=== PATIENT | female | born 1970 | race Caucasian/White ===

== ENCOUNTER → 2016-08-24 | Outpatient (CLI) | payer BC ==
[~2016-08-24] MED LIST: ACET-1256 PO; ALBU1AER9 INH; ALIGN PROBIOTIC PO; ALUM-30 PO; BECL1AER5 NAE; CALC500C50 PO; CHOL1CAP85 PO; DICY10CA12 PO; DIPH-437 PO; DIPH25TA24 PO; DSWCR TOP; FEXO1TAB46 PO; FLUO0.0566 TOP; FLUT0.0529 NAE; HYDR0.054 TOP; KETO0.0216 OPB; LEVA45AE INH; METH-446 PO; OLOP1DRO OPB; ONDA4TAB7 SL; PANT40TA PO; PROM25SU28 PR; PSEU30TA20 PO; PSEU30TA3 PO; PSEU60TA80 PO; RIZA10TA19 PO; SIME125C11 PO; SIME125T PO; TRAM-10 PO; TRMCR130WC TOP; [UNRECOGNIZED DRUG - CODE] PO; phenergan PO
== END | disposition home or self-care (01) ==
LOC: C.LAB1850 09:53
PROVIDERS: ATTEND Obstetrics & Gynecology
DX: N95.2 Postmenopausal atrophic vaginitis (principal)

== ENCOUNTER → 2016-12-24 | Outpatient (CLI) | payer BC ==
[~2016-12-24] MED LIST changes: -ALUM-30 PO; -BECL1AER5 NAE; -CHOL1CAP85 PO; -DIPH-437 PO; -DSWCR TOP; -FLUO0.0566 TOP; -HYDR0.054 TOP; -LEVA45AE INH; -OLOP1DRO OPB; -PANT40TA PO; -PSEU30TA3 PO; -SIME125T PO; -TRAM-10 PO; -TRMCR130WC TOP; -phenergan PO
== END | disposition home or self-care (01) ==
LOC: C.LABSPEC 17:33
PROVIDERS: ATTEND Nurse Practitioner Adult Health
DX: R10.2 Pelvic and perineal pain (principal); N39.3 Stress incontinence (female) (male)

== ENCOUNTER → 2017-02-04 | Outpatient (CLI) | payer BC ==
[2017-02-04 11:06] LABS: THYROID STIMULATING HORMONE 2.03 uIu/ml (0.300-4.500)
== END | disposition home or self-care (01) ==
LOC: C.LABBC 08:40
PROVIDERS: ATTEND Obstetrics & Gynecology
DX: E28.319 Asymptomatic premature menopause (principal)

== ENCOUNTER → 2017-02-05 | Outpatient (CLI) | payer BC ==
--- NOTE | 2017-02-05 14:32 | MAMMOGRAPHY REPORT ---
BILATERAL DIGITAL SCREENING MAMMOGRAM TOMOSYNTHESIS WITH CAD: 02/05/2017 CLINICAL HISTORY: Routine screening. Patient has no complaints. TECHNIQUE: Breast tomosynthesis in addition to standard 2D mammography was performed. Current study was also evaluated with a Computer Aided Detection (CAD) system. COMPARISON: Comparison is made to exams dated: 02/03/2016 mammogram, 02/01/2015 mammogram, 4 ultrasound, 01/29/2014 mammogram, 01/15/2013 ultrasound, and 01/15/2013 mammogram - [facility]. BREAST COMPOSITION: The tissue of both breasts is extremely dense, which lowers the sensitivity of m ammography. FINDINGS: The parenchymal pattern is similar to prior mammograms. No developing mass, architectural distortion or cluster of suspicious microcalcifications is seen in either breast. IMPRESSION: ACR BI-RADS CATEGORY 2: BENIGN There is no mammographic evidence of malignancy. A 1 year screening mammogram is recommended. The pa tient will receive written notification of the results. Approximately 10% of breast cancers are not detected with mammography. A negative mammographic report should not delay biopsy if a clinically suggestive mass is present. Lisa Nickerson M.D. ay/:02/05/2017 11:59:25 [employer] Work[employer] [place] Handle: Kylie Carter, [facility] letter sent: Normal 1/2 BI-RADS Code: ACR BI-RADS Category 2: Benign
== END | disposition home or self-care (01) ==
LOC: C.MAMM 10:47
PROVIDERS: ATTEND Obstetrics & Gynecology
DX: Z12.31 Encounter for screening mammogram for malignant neoplasm of breast (principal)

== ENCOUNTER → 2017-03-06 | Outpatient (CLI) | payer BC ==
[~2017-03-06] MED LIST changes: -ALBU1AER9 INH; -ALIGN PROBIOTIC PO; +ALUM-30 PO; +BECL1AER5 NAE; +CHOL1CAP85 PO; +DIPH-437 PO; -DIPH25TA24 PO; +DSWCR TOP; +FLUO0.0566 TOP; -FLUT0.0529 NAE; +HYDR0.054 TOP; -KETO0.0216 OPB; +LEVA45AE INH; +OLOP1DRO OPB; -ONDA4TAB7 SL; +PANT40TA PO; -PSEU30TA20 PO; +PSEU30TA3 PO; -SIME125C11 PO; +SIME125T PO; +TRAM-10 PO; +TRMCR130WC TOP; -[UNRECOGNIZED DRUG - CODE] PO; +phenergan PO
[2017-03-06 12:31] LABS: THYROID STIMULATING HORMONE 1.79 uIu/ml (0.300-4.500)
== END | disposition home or self-care (01) ==
LOC: C.LAB 09:49
PROVIDERS: ATTEND Obstetrics & Gynecology
DX: R53.83 Other fatigue (principal)

== ENCOUNTER 2017-04-23 20:35 | Emergency (ER) | payer BC ==
[~2017-04-23] VITALS: Ht 165.1 cm; Wt 67.9 kg
[2017-04-23 20:48] VITALS: TEMP 36.8; Ht 165.1 cm; Wt 67.9 kg
[2017-04-23] MEDS ORDERED: ALBUTEROL 0.083% NEBU SOLN 3 ML VIAL INH STA (21:24)
[2017-04-23 21:55] LABS: BASO % 0.2 %; BASO ABS # 0.01 K/uL (0-0.2); EOS % 0.3 %; EOS ABS # 0.02 K/uL (0-0.5); HEMATOCRIT 40.4 % (37-47); HEMOGLOBIN 13.8 g/dL (12.0-16.0); IG# 0.01 K/uL (0.00-0.02); LYMPH % 11.8 %; LYMPH ABS # 0.73 K/uL (1.2-3.4); MEAN CELL VOLUME 92.4 fL (80-100); MEAN CORPUSCULAR HEMOGLOBIN 31.6 pg (25-34); MEAN CORPUSCULAR HGB CONC 34.2 g/dl (32-36); MEAN PLATELET VOLUME 11.1 fL (7.4-10.4); MONO % 3.2 %; NEUT % 84.3 %; NEUT ABS # 5.23 K/uL (1.4-6.5); PLATELET COUNT 276 K/uL (130-400); RED CELL DISTRIBUTION WIDTH CV 12.5 % (11.5-14.5); RED CELL DISTRIBUTION WIDTH SD 42.4 fL (36.4-46.3)
--- NOTE | 2017-04-23 22:06 | DIAGNOSTIC IMAGING REPORT ---
CHEST ONE VIEW PORTABLE HISTORY: 46 years-old Female Chest Pain acute atypical chest pain COMPARISON: Acute abdominal series radiographs 05/12/2014 TECHNIQUE: Portable AP view of the chest FINDINGS: Cardiomediastinal and hilar silhouettes are within normal limits. No pneumothorax, pleural effusion, focal airspace consolidation or overt pulmonary edema. Bones of the chest appear grossly intact. IMPRESSION: No acute process. The above report was generated using voice recognition software. It may contain grammatical, syntax or spelling errors. Electronically signed by: Camilo Carreon M.D. 04/23/2017 10:04 PM Dictated Date/Time: 04/23/2017 10:04 PM
[2017-04-23 22:16] LABS: BLOOD UREA NITROGEN 14 mg/dl (7-18); CALCIUM 9.1 mg/dl (8.5-10.1); CARBON DIOXIDE 26 mmol/L (21-32); CREATININE 1.42 mg/dl (0.60-1.20); GLUCOSE 162 mg/dl (70-99); POTASSIUM 3.8 mmol/L (3.5-5.1); SODIUM 140 mmol/L (136-145)
[2017-04-23 22:48] LABS: INFLUENZA B ANTIGEN Neg for Influ B (NEG)
[2017-04-24] MEDS ORDERED: ALBUT/IPRATROP 3MG/0.5MG NEB 3 ML VIAL INH STA (00:18)
[2017-04-24] MEDS ORDERED: PRED50TA PO (00:19)
[2017-04-24 00:43] VITALS: BP 136/94; PULSE 85; O2SAT 98
--- NOTE | 2017-04-24 01:06 | EMERGENCY ROOM VISIT NOTE ---
History Report prepared by Selinaibvicky: Carmine Williamson Under the Supervision of: Dr. Jakob Davalos D.O. First contact with patient: 21:00 Chief Complaint: FLU LIKE SX Stated Complaint: PROBABLY FLU 2 WEEKS AGO, CONGESTIONS, SINUS,LUNGS History of Present Illness The patient is a 46 year old female who presents to the Emergency Room with complaints of persistent generalized illness beginning four days ago. Her symptoms include subjective fevers, sinus congestion, runny nose, cough, chest "tightness", and shortness of breath. Her cough produces a yellow sputum. The patient has a history of asthma and states that her chest tightness feels like her asthma. She notes that she had a sinus surgery recently and had a mucocele removed at this time. She denies any ear pain. The patient has taken Sudafed, Prednisone, and Tylenol for her symptoms. Prednisone has improved her symptoms. Patient denies diabetes, hypertension, hyperlipidemia, CAD, history of sudden at a young age, and smoking. Source of History: patient Onset: Four days ago Position: other (generalized) Quality: other (illness) Timing: other (persistent) Modifying Factors (Relieving): other (Prednisone) Associated Symptoms: + fevers (subjective), + cough (productive), + chest pain ("tightness"), + SOB Note: Positive: sinus congestion, runny nose. Negative: ear pain. Review of Systems See HPI for pertinent positives & negatives. A total of 10 systems reviewed and were otherwise negative. Past Medical & Surgical Medical Problems: (1) Patel's esophagus (2) Borderline high cholesterol (3) Endometriosis (4) GERD (gastroesophageal reflux disease) (5) Hiatal hernia (6) HTN (hypertension) (7) Kidney stone (8) Menorrhagia (9) Tachycardia (10) Upper GI bleed Family History No pertinent family history stated. Social History Smoking Status: Never Smoker Marital Status: Housing Status: lives with family Occupation Status: other Current/Historical Medications Scheduled Acetaminophen (Tylenol), 500 MG PO BID Beclomethasone Dipropionate (N (Qnasl), 2 SPRY OPAL DAILY Cholecalciferol (Vitamin D3), 1 CAP PO QAM Diphenhydramine-Acetaminophen (Tylenol Pm), 1 TAB PO HS Fexofenadine Hcl (Spohia), 180 MG PO QAM Methocarbamol (Robaxin), 750 MG PO BID Olopatadine HCl (Pazeo), 1 DROP OPB DAILY Pantoprazole (Protonix), 40 MG PO QAM Prednisone (Prednisone), 50 MG PO DAILY Pseudoephedrine-Guaifenesin (Mucinex D), 600 MG PO BID Scheduled PRN Alum & Mag Hydrox-Simethicone (Mylanta), 1 DOSE PO DAILY PRN for prn Calcium Carbonate (Antacid) (Tums), 750 MG PO Q4 PRN for Indigestion Desonide 0.05% (Desowen 0.05%), 1 APPLN TOP BID PRN for prn Dicyclomine Hcl (Dicyclomine Hcl), 10 MG PO QID PRN for ABDOMINAL CRAMPING Fluocinonide (Fluocinonide), 1 APPLN TOP DAILY PRN for prn Hydrocortisone Valerate (Westcort 0.2% Cream), 1 DOSE TOP DAILY PRN for prn Levalbuterol Tartrate (Levalbuterol Tartrate Hfa), 1 PUFF INH Q6H PRN for Shortness of Breath Promethazine Hcl (Phenergan Suppository), 25 MG HI Q6H PRN for Nausea Pseudoephedrine Hcl (Sudafed Nasal Decongestan), 1 TAB PO DAILY PRN for prn Rizatriptan Benzoate (Maxalt-Executive Director), 10 MG PO DIRECTED PRN for Migraine Simethicone (Bicarsim Forte), 1 TAB PO DAILY PRN for prn Tramadol (Ultram), 50 MG PO Q4H PRN for Pain Triamcinolone Acet (Aristocort 0.1%), 1 DOSE TOP DAILY PRN for prn [phenergan], 1 TSP PO Q4H PRN for nausea Allergies Coded Allergies: Cefuroxime (Verified Allergy, Severe, HIVES/SOB, 02/14/17) Doxycycline (Verified Allergy, Severe, RASH/SEVERE DIARRHEA, 02/14/17) Erythromycin (Verified Allergy, Severe, HIVES/SOB, 02/14/17) Gatifloxacin (Verified Allergy, Severe, HIVES/SOB, 02/14/17) Levofloxacin (Verified Allergy, Severe, HIVES/SOB/HALLUCINATIONS, 02/14/17 ) Moxifloxacin (Verified Allergy, Severe, HIVES/SOB, 02/14/17) Penicillins (Verified Allergy, Severe, HIVES AND SOB, 02/14/17) Sulfa Drugs (Verified Allergy, Severe, HIVES/SOB, 02/14/17) Sulfamethoxazole w/Trimethoprim (Verified Allergy, Severe, HIVES/SOB, ) Adhesives (Verified Allergy, Mild, bandaids - rash, itchy, 02/14/17) Silver Nitrate (Verified Allergy, Mild, rash and itchy, 02/14/17) Clindamycin (Verified Adverse Reaction, Unknown, SEVERE DIARRHEA/ ABDOMINAL CRAMPING ? airway restriction, 02/14/17) patient states she had flagyl and clindamycin in combination for a previous surery and had reaction of not being able to breathe and had to have epinephrine. she had taken flagyl for another surgery and did fine. so not sure if clindamycin or some other medication with surgery gave her this reaction. Dr Bustos has spoken with patient and she is willing to take the clindamycin. but very nervous about it. Physical Exam Vital Signs Date Time Temp Pulse Resp B/P (MAP) Pulse Ox O2 Delivery O2 Flow Rate FiO2 04/24/17 00:43 85 18 136/94 98 04/23/17 22:40 79 20 143/86 100 Room Air 04/23/17 20:48 36.8 105 20 187/95 100 Room Air Physical Exam GENERAL: Sitting up in bed, alert, well appearing, well nourished, no distress, non-toxic. Dry, non-productive cough noted. EYE EXAM: normal conjunctiva. OROPHARYNX: no exudate, no erythema, lips, buccal mucosa, and tongue normal and mucous membranes are moist NECK: supple, no nuchal rigidity, no adenopathy, non-tender LUNGS: Clear to auscultation. Normal chest wall mechanics HEART: no murmurs, S1 normal and S2 normal CHEST: faint anterior reproducible chest wall pain. ABDOMEN: abdomen soft, non-tender, normo-active bowel sounds, no masses, no rebound or guarding. BACK: Back is symmetrical on inspection and there is no deformity, no midline tenderness, no CVA tenderness. SKIN: no rashes and no bruising UPPER EXTREMITIES: upper extremities are grossly normal. LOWER EXTREMITIES: Calves equal bilaterally. NEURO EXAM: Normal sensorium, cranial nerves II-XII grossly intact, normal speech, no gross weakness of arms, no gross weakness of legs. Medical Decision & Procedures ER Provider Diagnostic Interpretation: Radiology results as stated below per my review and the radiologist's interpretation: CHEST ONE VIEW PORTABLE FINDINGS: Cardiomediastinal and hilar silhouettes are within normal limits. No pneumothorax, pleural effusion, focal airspace consolidation or overt pulmonary edema. Bones of the chest appear grossly intact. IMPRESSION: No acute process. The above report was generated using voice recognition software. It may contain grammatical, syntax or spelling errors. Electronically signed by: Camilo Carreon M.D. 04/23/2017 10:04 PM Laboratory Results 04/23/17 21:38 Red Blood Count 4.37, Mean Corpuscular Volume 92.4, Mean Corpuscular Hemoglobin 31.6, Mean Corpuscular Hemoglobin Concent 34.2, Mean Platelet Volume 11.1, Neutrophils (%) (Auto) 84.3, Lymphocytes (%) (Auto) 11.8, Monocytes (%) (Auto) 3.2, Eosinophils (%) (Auto) 0.3, Basophils (%) (Auto) 0.2, Neutrophils # (Auto) 5.23, Lymphocytes # (Auto) 0.73, Monocytes # (Auto) 0.20, Eosinophils # (Auto) 0.02, Basophils # (Auto) 0.01 04/23/17 21:38 Test 04/23/17 21:38 04/23/17 22:00 04/23/17 23:40 White Blood Count 6.20 K/uL (4.8-10.8) Red Blood Count 4.37 M/uL (4.2-5.4) Hemoglobin 13.8 g/dL (12.0-16.0) Hematocrit 40.4 % (37-47) Mean Corpuscular Volume 92.4 fL (80-100) Mean Corpuscular Hemoglobin 31.6 pg (25-34) Mean Corpuscular Hemoglobin Concent 34.2 g/dl (32-36) Platelet Count 276 K/uL (130-400) Mean Platelet Volume 11.1 fL (7.4-10.4) Neutrophils (%) (Auto) 84.3 % Lymphocytes (%) (Auto) 11.8 % Monocytes (%) (Auto) 3.2 % Eosinophils (%) (Auto) 0.3 % Basophils (%) (Auto) 0.2 % Neutrophils # (Auto) 5.23 K/uL (1.4-6.5) Lymphocytes # (Auto) 0.73 K/uL (1.2-3.4) Monocytes # (Auto) 0.20 K/uL (0.11-0.59) Eosinophils # (Auto) 0.02 K/uL (0-0.5) Basophils # (Auto) 0.01 K/uL (0-0.2) RDW Standard Deviation 42.4 fL (36.4-46.3) RDW Coefficient of Variation 12.5 % (11.5-14.5) Immature Granulocyte % (Auto) 0.2 % Immature Granulocyte # (Auto) 0.01 K/uL (0.00-0.02) D-Dimer 340 ug/L FEU (0-500) Anion Gap 8.0 mmol/L (3-11) Est Creatinine Clear Calc Drug Dose 45.5 ml/min Estimated GFR () 51.9 Estimated GFR (Non- 44.8 BUN/Creatinine Ratio 9.5 (10-20) Calcium Level 9.1 mg/dl (8.5-10.1) Influenza Type A Antigen Neg for Influ A (NEG) Influenza Type B Antigen Neg for Influ B (NEG) Troponin I < 0.015 ng/ml (0-0.045) Laboratory results per my review. Medications Administered Medications (Trade) Dose Ordered Sig/Herbie Route Start Time Stop Time Status Last Admin Dose Admin Albuterol Sulfate (Ventolin 0.083% 2.5MG/3ML Neb) 2.5 mg NOW STAT INH 04/23/17 21:24 04/23/17 21:25 DC 04/23/17 22:11 2.5 MG ECG Indication: chest pain Rate (beats per minute): 81 Rhythm: sinus rhythm Findings: no ectopy, other (Normal axis. ) ED Course ED COURSE: Vital signs were reviewed and showed tachycardia and hypertension. The patients medical record was reviewed The above diagnostic studies were performed and reviewed. ED treatments and interventions as stated above. 2116: The patient was evaluated in room C5. A complete history and physical examination was performed. 2123: Ordered Ventolin 0.083% 2.5 mg/3 mL Neb 2.5 mg INH. 2333: i updated the patient on her test results. 0015: Upon reevaluation, the patient is resting comfortably. I discussed my findings with the patient and she understands and agrees with the treatment plan. Based on the patients age, coexisting illnesses, exam and lab findings the decision to treat as an outpatient was made. The patient remained stable while under my care. The patient appeared well at the time of discharge. Medical Decision Differential diagnosis: Etiologies such as viral syndrome, otitis, pharyngitis, pneumonia, influenza, meningitis, urinary tract infection, sepsis, bacteremia, as well as others were entertained. Patient is a 46-year-old female who presents to ER with upper respiratory congestion, cough, runny nose and a sore throat. She's been coughing up yellow sputum. She also admits to some shortness of breath and chest tightness associated with symptoms. Does feel like her asthma. No fevers. She was given neb treatment with improvement of her tightness of breathing. CBC all BMP was unremarkable. Troponins were negative 2. EKG unremarkable. Chest x- ray without infiltrate. D-dimer was negative. Patient was given a pressure. Her steroids and treated for asthma/upper respiratory infection which I favor is likely viral. I did not give her antibiotics at this time. Discussed with Pt concerning signs and symptoms to watch out for. Pt was instructed to follow up with their PCP and discussed with the patient their option to return to the ED at anytime for persistent or worsening symptoms. The appropriate anticipatory guidance and out-patient management, including indications for return to the emergency department, were explained at length to the patient and understood. Medication Reconcilliation Current Medication List: was personally reviewed by me Blood Pressure Screening Patient's blood pressure: Elevated blood pressure Blood pressure disposition: Referred to PCP Impression Primary Impression: Viral URI Scribe Attestation The scribe's documentation has been prepared under my direction and personally reviewed by me in its entirety. I confirm that the note above accurately reflects all work, treatment, procedures, and medical decision making performed by me. Departure Information Dispostion Home / Self-Care Prescriptions Prednisone (PREDNISONE) 50 Mg Tab 50 MG PO DAILY for 3 Days, #3 TAB Prov: Jakob Davalos, 04/24/17 Referrals Yohan Ferris MD (PCP) Forms HOME CARE DOCUMENTATION FORM, IMPORTANT VISIT INFORMATION Patient Instructions ED URI Viral, My [facility] Additional Instructions Please follow up with your primary care doctor with in the next 24 hours. Any worsening of your symptoms, please return to the ED immediately. This includes any fevers greater than 100.4, worsening pain, chest pain, shortness breath, persistent nausea, vomiting, unable to eat or drink, or any other concerning signs or symptoms from your standpoint. Please take steroids as prescribed.
== END 2017-04-24 00:36 | disposition home or self-care (01) ==
LOC: C.EDB 20:36 → C.EDC 04-24 00:36
DX: J06.9 Acute upper respiratory infection, unspecified (principal); J45.909 Unspecified asthma, uncomplicated; K22.70 Barrett's esophagus without dysplasia; N80.9 Endometriosis, unspecified; K21.9 Gastro-esophageal reflux disease without esophagitis; K44.9 Diaphragmatic hernia without obstruction or gangrene; I10 Essential (primary) hypertension

== ENCOUNTER 2020-02-10 15:37 | Inpatient (IN) ==
--- NOTE | 2020-02-10 16:13 | XRay Report ---
KUB HISTORY: Generalized abdominal pain. COMPARISON: Chest and abdominal series 05/12/2014. FINDINGS: No dilated loops of bowel to suggest an obstruction. There is residual contrast within the colon. A few scattered colonic diverticula. No renal calculi. No ureteral calculi. No pneumoperitone um or pneumatosis. IMPRESSION: Residual oral contrast within the colon. Otherwise, unremarkable KUB. ACT 112: Negative or not required by law. Electronically signed by: Davey Butler M.D. 02/10/2020 4:11 PM
[2020-02-10 16:58] LABS: Basophils # (auto) 0.03 K/uL (0-0.2); Basophils % (auto) 0.5 %; Eosinophils % (auto) 1.6 %; Hematocrit (blood only) 43.5 % (37-47); Hemoglobin 14.5 g/dL (12.0-16.0); Lymphocytes # (auto) 1.34 K/uL (1.2-3.4); Lymphocytes % (auto) 21.6 %; Mean Corpuscular Hemoglobin 30.7 pg (25-34); Mean Corpuscular Hgb Conc 33.3 g/dL (32-36); Mean Platelet Volume 11.1 fL (7.4-10.4); Monocytes # (auto) 0.59 K/uL (0.11-0.59); Monocytes % (auto) 9.5 %; Neutrophils # (auto) 4.14 K/uL (1.4-6.5); Neutrophils % (auto) 66.8 %; Platelet Count 290 K/uL (130-400); RDW Coefficient of Variation 12.6 % (11.5-14.5); RDW Standard Deviation 42.6 fL (36.4-46.3); Red Blood Count 4.73 M/uL (4.2-5.4)
[2020-02-10] MEDS: SODIUM CHLORIDE 0.9% 1000ML 1,000 ML IV SCH (17:06)
[2020-02-10 17:22] LABS: Albumin Level 4.2 gm/dl (3.4-5.0); BUN Creatinine Ratio 7.7 (10-20); Calcium 9.4 mg/dl (8.5-10.1); Creatinine Clr Calc Pharmacy 63.9 ml/min; Est GFR (African American) 79.6; Est GFR (Non-African American) 68.7; Magnesium 2.3 mg/dl (1.8-2.4); Potassium 4.1 mmol/L (3.5-5.1)
[2020-02-10 17:23] LABS: Albumin Globulin Ratio 1.1 (0.9-2); Bilirubin,Total 0.6 mg/dl (0.2-1); Globulin 3.9 gm/dl (2.5-4.0); Total Protein 8.1 gm/dl (6.4-8.2)
--- NOTE | 2020-02-10 17:42 | History & Physical Report ---
Date of Service February 10, 2020 Assessment & Plan (1) Acute diverticulitis: This is a 49-year-old female who has significant past medical history of HTN, history of Patel's esophagus, GERD, IBS, chronic constipation, rectal prolapse, unspecified bleeding disorder, history of multiple drug allergies including anaphylaxis x2 who presents to ED from PCP secondary to acute diverticulitis unable to take any oral antibiotics due to allergies. Admit to med/surg Discussed with pharmacy regarding pt multiple drug allergies Start 1g IV Azactam and 500mg IV Flagyl q8h pre treat with APAP/Benadryl Clear liquid diet IVF 80cc/hr consult gen surg (2) Multiple drug allergies: (3) Hx of anaphylaxis: hx of anaphylaxis x 2 will pretreat 30min prior to antibiotic administration with APAP 500mg x 1 and benadryl 25mg x1 due to difficulty with allergies will consult ID to determine appropriateness of antibiotic selection (4) HTN (hypertension): BP elevated in ED takes clonidine 1/2 of 0.1mg at HS Also on Verapamil 40mg in a.m. ( @ home she takes this up to 3 x a day depending on BP) Currently scheduled once daily, with prn dose x 1 (5) GERD (gastroesophageal reflux disease): hx of barretts follows [facility] continue PPI (6) Asthma: no acute exac no recent use of albuterol (7) Bleeding disorder: pt with unspecified bleeding disorder therefore chemical prophylaxis will not be used SCD/TEDS Disposition: admit to med/surg Follow up: PCP Dr. Ferris upon discharge Pt was seen and examined in collaboration with Dr. Huff, please see addendum History of Present Illness Chief Complaint: Referred by PCP due to acute diverticulitis and multiple drug allergies. Primary Care Provider: Yohan Ferris MD This is a 49-year-old female who has significant past medical history of HTN, history of Patel's esophagus, GERD, IBS, chronic constipation, rectal prolapse, unspecified bleeding disorder, history of multiple drug allergies including anaphylaxis x2 who presents to ED from PCP secondary to acute diverticulitis unable to take any oral antibiotics due to allergies. She states symptoms started approximately 5 days ago when she developed intermittent left lower quadrant pain. Pain would come and go, described as a dull ache but over duration progressed to a sharp stabbing pain. Pain continued to wax and wanes but she did notice change in bowel habits with loose bowels x1. She also elicits nausea, decreased appetite and chills. She takes Tylenol daily and therefore unable to determine if she truly had fever. She denies lightheadedness, dizziness, syncope, chest pain, shortness of breath, cough, URI symptoms, emesis, melena, hematochezia, dysuria, increased urgency frequency of urination. She states she has had anaphylaxis x2 and she was very high-dose regarding antibiotics. She is requesting pretreatment prior to antibiotic with Tylenol and Benadryl. She has had anaphylaxis to cephalosporins and quinolones. Patient was to be a direct admission; however due to limited bed availability was directed to ED with our immediate evaluation. When she arrived she was hemodynamically stable. Mildly hypertensive. Her CBC and CMP was generally unremarkable. Covid screen negative. KUB negative for free air. She did have outpatient work-up yesterday with CT abdomen pelvis which revealed acute uncomplicated diverticulitis of the distal descending colon. She has been tolerating clear liquid diet at home. Allergies Allergy/AdvReac Type Severity Reaction Status Date / Time Bactrim Allergy Severe HIVES/SOB Verified 02/14/17 09:35 cefuroxime Allergy Severe HIVES/SOB Verified 02/10/20 17:30 ciprofloxacin [From Cipro] Allergy Severe tendon Verified 02/10/20 17:30 swelling & muscle pain doxycycline Allergy Severe RASH/SEVERE Verified 02/10/20 17:27 DIARRHEA erythromycin base Allergy Severe HIVES/SOB Verified 02/10/20 17:27 gatifloxacin Allergy Severe HIVES/SOB Verified 02/10/20 17:27 levofloxacin Allergy Severe HIVES/SOB/H Verified 02/10/20 17:27 ALLUCINATIO NS moxifloxacin Allergy Severe HIVES/SOB Verified 02/10/20 17:27 Penicillins Allergy Severe HIVES AND Verified 02/10/20 17:27 SOB Sulfa (Sulfonamide Allergy Severe HIVES/SOB Verified 02/10/20 17:27 Antibiotics) sulfamethoxazole Allergy Severe HIVES/SOB Verified 02/10/20 17:27 trimethoprim Allergy Severe HIVES/SOB Verified 02/10/20 17:30 adhesive Allergy Mild bandaids - Verified 02/10/20 17:30 rash, itchy silver nitrate Allergy Mild rash and Verified 02/10/20 17:30 itchy clindamycin AdvReac Unknown SEVERE Verified 02/10/20 17:30 DIARRHEA/ABDOMINAL CRAMPING ? airway restriction nickel AdvReac Itching, Verified 02/10/20 17:30 Rash Home Medications Medication Instructions Recorded Confirmed Type Bifidobacterium infantis [Align] 4 mg PO BID 02/10/20 02/10/20 History acetaminophen [Tylenol Extra 500 mg PO QID PRN 02/10/20 02/10/20 History Strength] albuterol sulfate [Ventolin HFA] 1 - 2 puff INHALATION Q4 PRN 02/10/20 02/10/20 History ascorbic acid (vitamin C) [Vitamin 500 mg PO DAILY PRN 02/10/20 02/10/20 History C] azelastine 1 spray INTRANASAL BID 02/10/20 02/10/20 History beclomethasone dipropionate [QNASL] 1 spray INTRANASAL BID 02/10/20 02/10/20 History bepotastine besilate [Bepreve] 1 drp OPHTHALMIC (EYE) BID 02/10/20 02/10/20 History bafakrsigk-nhuqcotgohhmx-nqvg 1 tab PO Q6H PRN 02/10/20 02/10/20 History [Fioricet] calcium carbonate [Tums] 300 mg PO Q4 PRN 02/10/20 02/10/20 History cholecalciferol (vitamin D3) 125 mcg PO Q2D 02/10/20 02/10/20 History clonidine HCl [Catapres] 0.05 mg PO HS 02/10/20 02/10/20 History conjugated estrogens [Premarin] 0.625 mg VAGINAL SUTH 02/10/20 02/10/20 History desonide 1 applic TOPICAL BID PRN 02/10/20 02/10/20 History dicyclomine 10 mg PO QID PRN 02/10/20 02/10/20 History diphenhydramine HCl [Benadryl] 25 mg PO HS PRN 02/10/20 02/10/20 History diphenhydramine-acetaminophen 1 tab PO HS PRN 02/10/20 02/10/20 History [Tylenol PM Extra Strength] fexofenadine 180 mg PO DAILY PRN 02/10/20 02/10/20 History fluocinonide 1 applic TOPICAL BID PRN 02/10/20 02/10/20 History guaifenesin [Mucinex] 600 mg PO Q12H 02/10/20 02/10/20 History hydrocortisone valerate 1 applic TOPICAL HS PRN 02/10/20 02/10/20 History methocarbamol 750 mg PO TID PRN 02/10/20 02/10/20 History ondansetron 4 mg PO Q6H PRN 02/10/20 02/10/20 History pantoprazole 40 mg PO DAILYBB 02/10/20 02/10/20 History simethicone 180 mg PO BID PRN 02/10/20 02/10/20 History tramadol 50 mg PO BID PRN 02/10/20 02/10/20 History triamcinolone acetonide 1 applic TOPICAL BID PRN 02/10/20 02/10/20 History verapamil 40 mg PO QAM 02/10/20 02/10/20 History Past Med/Surg History Medical History Patel's esophagus Bleeding disorder unspecified bleeding disorder does not take anticoagulation, blood thinners, NSAIDS Bleeding tendency Borderline high cholesterol Endometriosis (02/02/13) Endometriosis GERD (gastroesophageal reflux disease) Hiatal hernia HTN (hypertension) Kidney stone Menorrhagia (02/02/13) Migraine Sinus infection Tachycardia Upper GI bleed Viral URI Surgical History History of appendectomy History of colonoscopy History of dilation and curettage History of esophagogastroduodenoscopy (EGD) History of hernia repair History of hysterectomy History of laparoscopy History of sinus surgery History of tympanostomy S/P hysterectomy with oophorectomy S/P sinus surgery x6 Status post fine needle aspiration Family History Mother Intractable chronic common migraine without aura Kidney stones Hypertension Diabetes Bleeding disorder Father Myocardial infarction Cardiac disorder Deafness AVD (aortic valve disease) Family/Other AVD (aortic valve disease) Bleeding disorder Asthma Cardiac disorder Deafness Hypertension Allergies Other Stroke Social History Smoking Status: Never smoker Hx Alcohol Use: No Hx Substance Use: No Preferred Language: Swedish Communication Ability: Effective 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 Beliefs That Will Affect Care: None marital status: Current Living Situation: Spouse and Family current occupational status: retired Other Information That Helps Us Care for You: No Feels Safe at Home: Yes Safety Concerns: Feels Safe At This Time Assistive Devices: None Review of Systems Review of Systems: All systems reviewed & are unremarkable except as noted in HPI & below Physical Exam Physical Exam: Constitutional: WD/WN, vitals as above, NAD, sitting up in bed, pleasant, conversing easily Head: Normocephalic, Atraumatic Eyes: PERRL, conjunctivae normal, anicteric sclerae ENMT: external ear and nose normal, oropharynx normal Neck: trachea midline, no thyromegaly normal visual inspection Respiratory: normal respiratory effort, lungs clear to auscultation, no wheeze, rales, rhonchi. Normal insp/exp effort, no accessory muscle use Cardiovascular: RRR, no murmur, no edema Vessels: no JVD or carotid bruit Chest: normal inspection of chest Abdomen: normal bowel sounds, soft, LLQ tender to palpation, no rebound or guarding, no hepatosplenomegaly Musculoskeletal: no cyanosis or clubbing, extremities motor strength 5/5 Skin: no rashes, warm and dry normal turgor Neurologic: PERRL, EOMI, accommodation nl, no face palsy, no dysarthria CN's II-XI intact bilaterally and moves all extremities Psychiatric: A+Ox3, euthymic affect Lymphatic: no cervical or axillary lymphadenopathy : deferred Results & Data Results & Data ([facility]) Vital Signs (Past 12 Hours) Vital Signs Temp Pulse Pulse Resp BP BP Pulse Ox 02/10/20 17:06 75 20 151/90 H 98 02/10/20 15:48 37.2 C 89 18 172/112 H 99 Laboratory Results Short CBC 02/10/20 Range/Units 16:40 WBC 6.20 (4.8-10.8) K/uL Hgb 14.5 (12.0-16.0) g/dL Hct 43.5 (37-47) % Plt Count 290 (130-400) K/uL BMP 02/10/20 16:40 Sodium 138 Potassium 4.1 Chloride 105 Carbon Dioxide 32 BUN 8 Creatinine 0.98 Glucose 106 H Calcium 9.4 Liver Function 02/10/20 Range/Units 16:40 Total Bilirubin 0.6 (0.2-1) mg/dl AST 17 (15-37) U/L ALT 20 (12-78) U/L Alkaline Phosphatase 81 (45-117) U/L Albumin 4.2 (3.4-5.0) gm/dl Diagnostic Findings CT abd/pelvis: IMPRESSION IMPRESSION 1. Acute uncomplicated diverticulitis of the distal descending colon. 2. Nonobstructing 3 mm calculus in the lower pole of the right kidney. Medications Administered Sodium Chloride (Nss 1000ml) 1,000 mls @ 80 mls/hr IV .[id number] OLIVERIO Stop: 03/11/20 15:59 Last Admin: 02/10/20 17:06 Dose: 80 mls/hr Documented by: [id number] Code Status & VTE Plan Code Status Full Code VTE Prophylaxis Plan VTE Prophylaxis will be ordered: Yes Reason for no VTE drug order: Contraindicated Supervising Physician Co-Signing Physician Notes Patient is a 49-year-old female with history of hypertension, Patel's esophagus, GERD, chronic constipation and other medical problems presents with history of left lower quadrant pain. Patient had CT abdomen as outpatient and was diagnosed to have acute diverticulitis. Patient was referred by PCP for IV antibiotics. Patient states having left lower quadrant abdominal pain since 5 days duration, intermittent pain, nonradiating, worsens with food intake, denies any blood in stools. Please review HPI for complete details of presentation. Patient is known to have multiple allergic reactions to antibiotics previously. KUB done today showed residual oral contrast within the colon, otherwise unremarkable. Lactate levels are normal. On exam patient is moderately built and nourished, no apparent distress, normocephalic atraumatic, lungs are clear to auscultation, normal breath sounds, S1-S2, no murmur, abdomen soft, left lower quadrant tenderness, no guarding or rigidity, normal bowel sounds, no pedal edema, alert, awake, oriented, grossly no focal neurological deficits. Patient is admitted for management of acute diverticulitis. Will start on IV Azactam, Flagyl, IV fluids, clear liquid diet. Consulted general surgery. Given allergic reactions to multiple antibiotics, will premedicate with Tylenol, Benadryl. Patient denies slightly limited while in ED, likely situational secondary to pain. Will resume home antihypertensives. I personally reviewed the record. Patient is interviewed and examined at bedside. Patient's care is coordinated with Karishma Damon PA-C. Please refer to the documentation above for details of patient's presentation and for discussion of other issues.
[2020-02-10] MEDS ORDERED: DICYCLOMINE HCL 10 MG CAP PO PRN (18:09)
[2020-02-10] MEDS ORDERED: traMADol HCL 50 MG TABLET PO PRN (18:09)
[2020-02-10] MEDS ORDERED: ALBUTEROL HFA 8 GM INHALER INH PRN (18:09)
[2020-02-10] MEDS ORDERED: methylPREDNISolone 125 MG/2 ML VIAL IV PRN (18:09)
[2020-02-10] MEDS ORDERED: EPINEPHrine INJ 1 MG/ML AMP IM PRN (18:30)
[2020-02-10] MEDS ORDERED: methylPREDNISolone 125 MG in SYRINGE 0 ML IV PRN (18:31)
[2020-02-10] MEDS: diphenhydrAMINE Capsule 25 MG CAP PO SCH (19:01)
[2020-02-10] MEDS: ACETAMINOPHEN 500 MG TAB PO SCH (19:01)
[2020-02-10] MEDS: AZTREONAM 1,000 MG in DEXTROSE 5% 100 ML IV SCH (19:45)
[2020-02-10] MEDS: metroNIDAZOLE 500 MG/100 ML BAG IV SCH (20:57)
[2020-02-10] MEDS: [UNRECOGNIZED DRUG - REMARK] OP SCH (20:57)
[2020-02-10] MEDS: CLONIDINE HCL 0.1 MG PO SCH (21:00)
[2020-02-10] MEDS ORDERED: NON-FORMULARY MEDICATION (Bifidobacterium Infantis [Align] 4 mg Capsule) PO SCH (21:00)
[2020-02-11] MEDS ORDERED: AZTREONAM CONSULT ACTIVE PRN (01:39)
[2020-02-11] MEDS: AZELASTINE ~ ORDER AWAITING ACTION SCH ×3 (01:47→15:42)
[2020-02-11] MEDS: diphenhydrAMINE Capsule 25 MG CAP PO SCH ×3 (02:27→18:32)
[2020-02-11] MEDS: ACETAMINOPHEN 500 MG TAB PO SCH ×3 (02:27→18:32)
[2020-02-11] MEDS: metroNIDAZOLE 500 MG/100 ML BAG IV SCH ×3 (03:04→21:11)
[2020-02-11] MEDS: AZTREONAM 1,000 MG in DEXTROSE 5% 100 ML IV SCH ×3 (04:13→19:10)
[2020-02-11] MEDS: SODIUM CHLORIDE 0.9% 1000ML 1,000 ML IV SCH ×2 (05:25→17:50)
[2020-02-11] MEDS: PANTOprazole 40 MG TAB PO SCH (06:46)
[2020-02-11 08:16] LABS: Basophils # (auto) 0.03 K/uL (0-0.2); Basophils % (auto) 0.7 %; Eosinophils # (auto) 0.22 K/uL (0-0.5); Eosinophils % (auto) 5.5 %; Hematocrit (blood only) 40.2 % (37-47); Hemoglobin 13.2 g/dL (12.0-16.0); Lymphocytes # (auto) 1.14 K/uL (1.2-3.4); Lymphocytes % (auto) 28.4 %; Mean Corpuscular Hemoglobin 30.8 pg (25-34); Mean Corpuscular Hgb Conc 32.8 g/dL (32-36); Mean Corpuscular Volume 93.9 fL (80-100); Mean Platelet Volume 11.1 fL (7.4-10.4); Monocytes # (auto) 0.51 K/uL (0.11-0.59); Monocytes % (auto) 12.7 %; Neutrophils # (auto) 2.11 K/uL (1.4-6.5); Neutrophils % (auto) 52.7 %; Platelet Count 260 K/uL (130-400); RDW Coefficient of Variation 12.9 % (11.5-14.5); RDW Standard Deviation 44.4 fL (36.4-46.3); Red Blood Count 4.28 M/uL (4.2-5.4); White Blood Count 4.01 K/uL (4.8-10.8)
--- NOTE | 2020-02-11 08:30 | Surgery Consultation ---
Date of Consultation February 11, 2020 Assessment & Plan (1) Acute diverticulitis: Clinically improving. No indication for urgent surgical intervention. She prefers to follow-up with her colorectal surgeon at [place]. We will sign off. Please call if I can be of assistance. History of Present Illness Attending Physician: Kelin Marin MD History of Present Illness 49-year-old with her first incident of acute diverticulitis found on outpatient CT scan. Her pain began about 6 days ago and is in the left lower quadrant. She has multiple comorbidities exacerbated by severe allergies. She is currently feeling improved since her admission. Allergies Allergy/AdvReac Type Severity Reaction Status Date / Time Bactrim Allergy Severe HIVES/SOB Verified 02/14/17 09:35 cefuroxime Allergy Severe HIVES/SOB Verified 02/10/20 17:30 ciprofloxacin [From Cipro] Allergy Severe tendon Verified 02/10/20 17:30 swelling & muscle pain doxycycline Allergy Severe RASH/SEVERE Verified 02/10/20 17:27 DIARRHEA erythromycin base Allergy Severe HIVES/SOB Verified 02/10/20 17:27 gatifloxacin Allergy Severe HIVES/SOB Verified 02/10/20 17:27 levofloxacin Allergy Severe HIVES/SOB/H Verified 02/10/20 17:27 ALLUCINATIO NS moxifloxacin Allergy Severe HIVES/SOB Verified 02/10/20 17:27 Penicillins Allergy Severe HIVES AND Verified 02/10/20 17:27 SOB Sulfa (Sulfonamide Allergy Severe HIVES/SOB Verified 02/10/20 17:27 Antibiotics) sulfamethoxazole Allergy Severe HIVES/SOB Verified 02/10/20 17:27 trimethoprim Allergy Severe HIVES/SOB Verified 02/10/20 17:30 adhesive Allergy Mild bandaids - Verified 02/10/20 17:30 rash, itchy silver nitrate Allergy Mild rash and Verified 02/10/20 17:30 itchy clindamycin AdvReac Unknown SEVERE Verified 02/10/20 17:30 DIARRHEA/ABDOMINAL CRAMPING ? airway restriction nickel AdvReac Itching, Verified 02/10/20 17:30 Rash Home Medications Medication Instructions Recorded Confirmed Type Bifidobacterium infantis [Align] 4 mg PO BID 02/10/20 02/10/20 History acetaminophen [Tylenol Extra 500 mg PO QID PRN 02/10/20 02/10/20 History Strength] albuterol sulfate [Ventolin HFA] 1 - 2 puff INHALATION Q4 PRN 02/10/20 02/10/20 History ascorbic acid (vitamin C) [Vitamin 500 mg PO DAILY PRN 02/10/20 02/10/20 History C] azelastine 1 spray INTRANASAL BID 02/10/20 02/10/20 History beclomethasone dipropionate [QNASL] 1 spray INTRANASAL BID 02/10/20 02/10/20 History bepotastine besilate [Bepreve] 1 drp OPHTHALMIC (EYE) BID 02/10/20 02/10/20 History wxlnidjisd-vsvyyrjwvgoeb-zhjg 1 tab PO Q6H PRN 02/10/20 02/10/20 History [Fioricet] calcium carbonate [Tums] 300 mg PO Q4 PRN 02/10/20 02/10/20 History cholecalciferol (vitamin D3) 125 mcg PO Q2D 02/10/20 02/10/20 History clonidine HCl [Catapres] 0.05 mg PO HS 02/10/20 02/10/20 History conjugated estrogens [Premarin] 0.625 mg VAGINAL SUTH 02/10/20 02/10/20 History desonide 1 applic TOPICAL BID PRN 02/10/20 02/10/20 History dicyclomine 10 mg PO QID PRN 02/10/20 02/10/20 History diphenhydramine HCl [Benadryl] 25 mg PO HS PRN 02/10/20 02/10/20 History diphenhydramine-acetaminophen 1 tab PO HS PRN 02/10/20 02/10/20 History [Tylenol PM Extra Strength] fexofenadine 180 mg PO DAILY PRN 02/10/20 02/10/20 History fluocinonide 1 applic TOPICAL BID PRN 02/10/20 02/10/20 History guaifenesin [Mucinex] 600 mg PO Q12H 02/10/20 02/10/20 History hydrocortisone valerate 1 applic TOPICAL HS PRN 02/10/20 02/10/20 History methocarbamol 750 mg PO TID PRN 02/10/20 02/10/20 History ondansetron 4 mg PO Q6H PRN 02/10/20 02/10/20 History pantoprazole 40 mg PO DAILYBB 02/10/20 02/10/20 History simethicone 180 mg PO BID PRN 02/10/20 02/10/20 History tramadol 50 mg PO BID PRN 02/10/20 02/10/20 History triamcinolone acetonide 1 applic TOPICAL BID PRN 02/10/20 02/10/20 History verapamil 40 mg PO QAM 02/10/20 02/10/20 History Patient History Medical History Patel's esophagus Bleeding disorder unspecified bleeding disorder does not take anticoagulation, blood thinners, NSAIDS Bleeding tendency Borderline high cholesterol Endometriosis (02/02/13) Endometriosis GERD (gastroesophageal reflux disease) Hiatal hernia HTN (hypertension) Kidney stone Menorrhagia (02/02/13) Migraine Sinus infection Tachycardia Upper GI bleed Viral URI Surgical History History of appendectomy History of colonoscopy History of dilation and curettage History of esophagogastroduodenoscopy (EGD) History of hernia repair History of hysterectomy History of laparoscopy History of sinus surgery History of tympanostomy S/P hysterectomy with oophorectomy S/P sinus surgery x6 Status post fine needle aspiration Family History Mother Intractable chronic common migraine without aura Kidney stones Hypertension Diabetes Bleeding disorder Father Myocardial infarction Cardiac disorder Deafness AVD (aortic valve disease) Family/Other AVD (aortic valve disease) Bleeding disorder Asthma Cardiac disorder Deafness Hypertension Allergies Other Stroke Social History Smoking Status: Never smoker Hx Alcohol Use: No Hx Substance Use: No Preferred Language: Divehi Communication Ability: Effective 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 Beliefs That Will Affect Care: None marital status: Current Living Situation: Spouse and Family current occupational status: retired Other Information That Helps Us Care for You: No Feels Safe at Home: Yes Safety Concerns: Feels Safe At This Time Assistive Devices: None Review of Systems Review of Systems: All systems reviewed & are unremarkable except as noted in HPI & below Physical Exam Constitutional: WD/WN, vitals as above no acute distress and not ill appearing Eyes: PERRL, conjunctivae normal, anicteric sclerae EOM intact bilaterally ENMT: external ear and nose normal, oropharynx normal Ears: no hearing impairment Neck: trachea midline, no thyromegaly Respiratory: normal respiratory effort; no respiratory distress and does not use accessory muscles Cardiovascular: Rate/Rhythm: regular rate and regular rhythm Gastrointestinal (Abdomen): Soft. Positive left lower quadrant tenderness to palpation. No guarding. No rebound. Skin: no rashes, warm and dry Psychiatric: Orientation: alert, oriented x 3 and cooperative Results & Data ([facility]) Vital Signs (Past 12 Hours) Vital Signs Temp Pulse Resp BP Pulse Ox 02/11/20 07:19 36.6 C 60 18 128/78 98 02/11/20 04:22 36.6 C 57 L 16 120/74 98 02/10/20 23:39 36.2 C L 71 18 147/67 H 100 PG Care Time/CCT Total # of Minutes Spent Total Time Spent with Patient: Total time spent is greater than 50% in coordination of care (as documented) at patient's floor/unit and/or counseling p atient: Coding Level of Care Code 51782 Inpt Consult Level 4 Diagnoses Acute diverticulitis K57.92
[2020-02-11] MEDS ORDERED: PROBIOTIC PO SCH (09:00)
[2020-02-11] MEDS: PROBIOTIC PO SCH ×3 (09:02→21:12)
[2020-02-11] MEDS: [UNRECOGNIZED DRUG - REMARK] OP SCH ×2 (09:03→21:09)
--- NOTE | 2020-02-11 09:36 | Hospitalist Progress Note ---
Date of Service February 11, 2020 Assessment & Plan (1) Acute diverticulitis: 49-year-old female who has significant past medical history of HTN, history of Patel's esophagus, GERD, IBS, chronic constipation, rectal prolapse, unspecified bleeding disorder, history of multiple drug allergies including anaphylaxis x2 who presents to ED from PCP secondary to acute diverticulitis unable to take any oral antibiotics due to allergies. Continue IV aztreonam and metronidazole Continue pretreatment with benadryl Monitor closely for allergies Will appreciate ID recommendations Continue IVF Continue liquid diet for today (2) Multiple drug allergies: (3) Hx of anaphylaxis: (4) HTN (hypertension): Controlled Continue clonidine and verapamil home meds (5) GERD (gastroesophageal reflux disease): Hx of barretts Follows [facility] Continue PPI (6) Asthma: Stable (7) Bleeding disorder: Per Admitting provider, Patient reported to have an unspecified bleeding disorder therefore chemical prophylaxis will not be used SCD/TEDS Admission and Anticipated Discharge Date Admission Date: February 10, 2020 Subjective Patient seen and examined. Reports abdominal pain is slightly improved today, currently LLQ, 3/10 usually on movement or palpation, no nausea/vomiting/diarrhea/hematochezia. No fevers,chills No dysuria,frequency,urgency,hematuria No headache,dizziness No chest pain, cough, SOB Reports mild left sided back pain which she reported may be related to laying down for long Reported mild itching after antibiotics yesterday that resolved with benadryl. Stated this was not like her usual allergic reactions Physical Exam Constitutional: well developed and + well hydrated; no acute distress Eyes: PERRL, conjunctivae normal, anicteric sclerae ENMT: external ear and nose normal, oropharynx normal Respiratory: normal respiratory effort, lungs clear to auscultation Cardiovascular: RRR, no murmur, no edema Gastrointestinal (Abdomen): Inspection/Auscultation: abdomen normal to inspection and normal bowel sounds; abdomen not distended Percussion/Palpation: + abdomen tender (Mild LLQ) and abdomen soft; no guarding and abdomen not rigid Musculoskeletal: no cyanosis or clubbing, extremities motor strength 5/5 Neurologic: PERRL, EOMI, accommodation nl, no face palsy, no dysarthria Psychiatric: A+Ox3, euthymic affect Results & Data Results & Data ([facility]) Vital Signs (Past 12 Hours) Vital Signs Temp Pulse Resp BP Pulse Ox 02/11/20 07:19 36.6 C 60 18 128/78 98 02/11/20 04:22 36.6 C 57 L 16 120/74 98 02/10/20 23:39 36.2 C L 71 18 147/67 H 100 Laboratory Results Laboratory Results - last 24 hr 02/10/20 02/10/20 02/10/20 16:40 16:40 16:40 WBC 6.20 RBC 4.73 Hgb 14.5 Hct 43.5 MCV 92.0 MCH 30.7 MCHC 33.3 RDW Std Deviation 42.6 RDW Coeff of Juliane 12.6 Plt Count 290 MPV 11.1 H Immature Gran % (Auto) 0.0 Neut % (Auto) 66.8 Lymph % (Auto) 21.6 [place] % (Auto) 9.5 Eos % (Auto) 1.6 Baso % (Auto) 0.5 Neut # (Auto) 4.14 Lymph # (Auto) 1.34 [place] # (Auto) 0.59 Eos # (Auto) 0.10 Baso # (Auto) 0.03 Immature Gran # (Auto) 0.00 Sodium 138 Potassium 4.1 Chloride 105 Carbon Dioxide 32 Anion Gap 1.0 L BUN 8 Creatinine 0.98 Est Cr Clr Drug Dosing 63.9 Est GFR ( Amer) 79.6 Est GFR (Non-Af Amer) 68.7 BUN/Creatinine Ratio 7.7 L Glucose 106 H Lactate 1.1 Calcium 9.4 Magnesium 2.3 Total Bilirubin 0.6 AST 17 ALT 20 Alkaline Phosphatase 81 Total Protein 8.1 Albumin 4.2 Globulin 3.9 Albumin/Globulin Ratio 1.1 SARS-CoV-2 Ag (Rapid) 02/10/20 02/11/20 02/11/20 Unknown 07:40 07:40 WBC 4.01 L RBC 4.28 Hgb 13.2 Hct 40.2 MCV 93.9 MCH 30.8 MCHC 32.8 RDW Std Deviation 44.4 RDW Coeff of Juliane 12.9 Plt Count 260 MPV 11.1 H Immature Gran % (Auto) 0.0 Neut % (Auto) 52.7 Lymph % (Auto) 28.4 [place] % (Auto) 12.7 Eos % (Auto) 5.5 Baso % (Auto) 0.7 Neut # (Auto) 2.11 Lymph # (Auto) 1.14 L [place] # (Auto) 0.51 Eos # (Auto) 0.22 Baso # (Auto) 0.03 Immature Gran # (Auto) 0.00 Sodium Pending Potassium Pending Chloride Pending Carbon Dioxide Pending Anion Gap Pending BUN Pending Creatinine Pending Est Cr Clr Drug Dosing Pending Est GFR ( Amer) Pending Est GFR (Non-Af Amer) Pending BUN/Creatinine Ratio Pending Glucose Pending Lactate Calcium Pending Magnesium Pending Total Bilirubin AST ALT Alkaline Phosphatase Total Protein Albumin Globulin Albumin/Globulin Ratio SARS-CoV-2 Ag (Rapid) Negative Diagnostic Findings OUTPATIENT CT SCAN EXAM: CT ABD/PELVIS WO IV CONTRAST - W ORAL CONTRAST DATE and TIME: 02/09/2020 5:47 pm HISTORY CLINICAL INFORMATION: left sided abd pain worse in LLQ - 5 days. r/o diverticulitis TECHNIQUE Oral Contrast: Oral contrast was administered IV Contrast: Intravenous contrast was not administered COMPARISON CT ABDOMEN /PELVIS WITH IV CONTRAST WITH ORAL dated 07/03/2011 FINDINGS LINES AND DEVICES: None LOWER CHEST: HEART(visualized): The heart is normal in size. There is a simple trace pericardial effusion. LUNG BASES: The lung bases are unremarkable. LIVER: The liver is normal in size with smooth contours and homogeneous attenuation. No focal abnormality is identified on this noncontrast study. BILE DUCTS: There is no intrahepatic or extrahepatic biliary duct dilatation. GALLBLADDER: The gallbladder is normally distended without a radiopaque calculus, wall thickening, or pericholecystic inflammation. PANCREAS: The pancreas is normal in size. There is no pancreatic or peripancreatic inflammation or fluid collection. The pancreatic duct is normal in size. SPLEEN: The spleen is normal in size. No focal abnormality is visualized on this non-contrast study. ADRENALS: Normal. KIDNEYS/URETERS: The kidneys are normal in size. There is a 3 mm calculus in the lower pole of the right kidney. No left-sided calculi are identified. There is no hydroureteronephrosis, contour deforming lesion, or perinephric fluid. BLADDER: The urinary bladder is physiologically distended without a bladder calculus or perivesicular inflammation. BOWEL: There is focal pericolonic inflammation adjacent to a diverticulum in the distal descending colon, consistent with acute diverticulitis. Mild associated wall thickening of the distal descending colon is also noted. A few additional noninflamed diverticula are seen in the transverse colon. No other areas of bowel wall thickening identified. The small and large bowel are normal in caliber, without evidence of inflammation. The appendix is not identified, but there is no pericecal inflammation. The stomach is unremarkable. LYMPH NODES: There are no enlarged or suspicious abdominal or pelvic lymph nodes. VESSELS: The aorta and its branch vessels are normal in caliber. There is mild atherosclerotic calcification. REPRODUCTIVE ORGANS: The uterus is absent. There is no adnexal mass. PERITONEUM/RETROPERITONEUM: Trace free fluid is seen in the left pericolic gutter adjacent to the distal descending colon. There is no fluid collection or free air. ABDOMINAL WALL/SOFT TISSUES: Unremarkable BONES: There is no suspicious osseous lesion. Mild degenerative changes are seen in the visualized lower thoracic spine. IMPRESSION IMPRESSION 1. Acute uncomplicated diverticulitis of the distal descending colon. 2. Nonobstructing 3 mm calculus in the lower pole of the right kidney.
[2020-02-11 09:38] LABS: BUN Creatinine Ratio 8.5 (10-20); Calcium 8.5 mg/dl (8.5-10.1); Creatinine Clr Calc Pharmacy 70.3 ml/min; Est GFR (African American) 89.5; Est GFR (Non-African American) 77.2; Magnesium 2.4 mg/dl (1.8-2.4); Potassium 4.2 mmol/L (3.5-5.1)
[2020-02-11] MEDS: VERAPAMIL HCL 40 MG PO SCH (10:32)
[2020-02-11] MEDS: SIMETHICONE 40 MG/0.6 ML 30ML PO PRN ×2 (11:44→15:44)
[2020-02-11] MEDS: CLONIDINE HCL 0.1 MG PO SCH (19:32)
[2020-02-11] MEDS ORDERED: cloNIDine HCL 0.1 MG TAB PO ONE (19:48)
[2020-02-11] MEDS ORDERED: ADVANCED PROBIOTIC 1250 MG CAPSULE PO SCH (21:00)
[2020-02-12] MEDS: PROBIOTIC PO SCH ×2 (00:43→08:25)
[2020-02-12] MEDS: AZELASTINE ~ ORDER AWAITING ACTION SCH ×3 (00:45→15:43)
[2020-02-12] MEDS: diphenhydrAMINE Capsule 25 MG CAP PO SCH ×2 (01:43→09:25)
[2020-02-12] MEDS: ACETAMINOPHEN 500 MG TAB PO SCH ×3 (01:43→18:29)
[2020-02-12] MEDS: metroNIDAZOLE 500 MG/100 ML BAG IV SCH ×2 (02:26→11:49)
[2020-02-12] MEDS: SODIUM CHLORIDE 0.9% 1000ML 1,000 ML IV SCH ×2 (06:31→18:29)
[2020-02-12] MEDS: PANTOprazole 40 MG TAB PO SCH (06:33)
[2020-02-12] MEDS: VERAPAMIL HCL 40 MG PO SCH (08:23)
[2020-02-12] MEDS: [UNRECOGNIZED DRUG - REMARK] OP SCH ×2 (08:26→23:13)
[2020-02-12 08:57] LABS: Hematocrit (blood only) 41.5 % (37-47); Hemoglobin 13.6 g/dL (12.0-16.0); Mean Corpuscular Hgb Conc 32.8 g/dL (32-36); Mean Corpuscular Volume 94.5 fL (80-100); Mean Platelet Volume 11.5 fL (7.4-10.4); Platelet Count 278 K/uL (130-400); RDW Coefficient of Variation 12.9 % (11.5-14.5); RDW Standard Deviation 44.9 fL (36.4-46.3); Red Blood Count 4.39 M/uL (4.2-5.4); White Blood Count 3.89 K/uL (4.8-10.8)
--- NOTE | 2020-02-12 08:58 | Hospitalist Progress Note ---
Date of Service February 12, 2020 Assessment & Plan (1) Acute diverticulitis: 49-year-old female who has significant past medical history of HTN, history of Patel's esophagus, GERD, IBS, chronic constipation, rectal prolapse, unspecified bleeding disorder, history of multiple drug allergies including anaphylaxis x2 who presents to ED from PCP secondary to acute diverticulitis unable to take any oral antibiotics due to allergies. Continue IV aztreonam and metronidazole Patient does seem to be tolerating IV antibiotics well. Did report occasional episodes of itching resolves quickly. Got IV aztreonam and metronidazole this morning with pretreatment with Benadryl without any reactions. Continue pretreatment with benadryl Monitor closely for allergies Awaiting ID recommendations Continue IVF Continue liquid diet for today (2) Multiple drug allergies: (3) Hx of anaphylaxis: (4) HTN (hypertension): Got extra dose of clonidine yesterday night. Patient reports that she usually takes extra dose as needed depending on blood pressure Continue clonidine and verapamil home meds (5) GERD (gastroesophageal reflux disease): Hx of barretts Follows [facility] Continue PPI (6) Asthma: Stable (7) Bleeding disorder: Per Admitting provider, Patient reported to have an unspecified bleeding disorder therefore chemical prophylaxis will not be used SCD/TEDS Ambulate Admission and Anticipated Discharge Date Admission Date: February 10, 2020 Subjective Patient seen and examined Patient reports that she had an episode of abdominal pain, diarrhea and feeling unwell yesterday night after getting antibiotics Patient has reported occasional intermittent itching on skin and ?throat itching with antibiotics but resolves quickly. Denied any SOB, choking, throat swelling Denied any rash. She was concerned about getting antibiotics this morning. She reported no abdominal pain this morning. Reports feeling better today No nausea vomiting No fevers or chills Denied any chest pain, cough, shortness of breath Physical Exam Constitutional: well developed and + well hydrated; no acute distress Eyes: PERRL, conjunctivae normal, anicteric sclerae ENMT: external ear and nose normal, oropharynx normal Respiratory: normal respiratory effort, lungs clear to auscultation Cardiovascular: RRR, no murmur, no edema Gastrointestinal (Abdomen): normal bowel sounds, soft, nontender, no hepatosplenomegaly Musculoskeletal: no cyanosis or clubbing, extremities motor strength 5/5 Neurologic: PERRL, EOMI, accommodation nl, no face palsy, no dysarthria Psychiatric: A+Ox3, euthymic affect Results & Data Results & Data ([facility]) Vital Signs (Past 12 Hours) Vital Signs Temp Pulse Resp BP Pulse Ox 02/12/20 07:07 36.8 C 69 20 158/89 H 100 Laboratory Results Laboratory Results - last 24 hr 02/12/20 02/12/20 08:19 08:19 WBC 3.89 L RBC 4.39 Hgb 13.6 Hct 41.5 MCV 94.5 MCH 31.0 MCHC 32.8 RDW Std Deviation 44.9 RDW Coeff of Juliane 12.9 Plt Count 278 MPV 11.5 H Sodium 140 Potassium 4.3 Chloride 110 H Carbon Dioxide 26 Anion Gap 4.0 BUN 6 L Creatinine 0.90 Est Cr Clr Drug Dosing 69.5 Est GFR ( Amer) 88.3 Est GFR (Non-Af Amer) 76.1 BUN/Creatinine Ratio 7.0 L Glucose 105 H Calcium 8.8
[2020-02-12] MEDS ORDERED: ADVANCED PROBIOTIC 1250 MG CAPSULE PO SCH (09:00)
[2020-02-12 09:48] LABS: Calcium 8.8 mg/dl (8.5-10.1); Creatinine Clr Calc Pharmacy 69.5 ml/min; Est GFR (African American) 88.3; Est GFR (Non-African American) 76.1; Potassium 4.3 mmol/L (3.5-5.1)
[2020-02-12] MEDS: AZTREONAM 1,000 MG in DEXTROSE 5% 100 ML IV SCH ×2 (10:02→23:10)
[2020-02-12] MEDS ORDERED: VANCOMYCIN HCL 1,500 MG in SODIUM CHLORIDE 0.9% 500 ML IV STA (18:05)
[2020-02-12] MEDS ORDERED: VANCOMYCIN CONSULT ACTIVE PRN (18:08)
[2020-02-12] MEDS ORDERED: diphenhydrAMINE Capsule 25 MG CAP PO ONE (18:15)
--- NOTE | 2020-02-12 18:26 | Pharmacy Report ---
Pharmacy Abx Dose Short Note - Date of Service February 12, 2020 - Assessment & Plan Assessment * 49 year old F receiving aztreonam and metronidazole for treatment of diverticulitis since 02/09. Vancomycin added today (02/11) for Gram positive coverage * Renal function stable * Vancomycin per AUC dosing * Trough prior to 4th overall dose Plan * Vancomycin 1500 mg IV x1 then 1000 mg IV q12h * Trough 02/13 @ 0630 Pharmacy will continue to follow and will adjust dose/frequency as necessary. Thank you.
[2020-02-12] MEDS: CLONIDINE HCL 0.1 MG PO SCH (23:14)
[2020-02-12] MEDS ORDERED: Nursing to Pharmacy Communication SCH (23:45)
[2020-02-13] MEDS: PROBIOTIC PO SCH ×3 (00:15→08:11)
[2020-02-13] MEDS: AZELASTINE ~ ORDER AWAITING ACTION SCH ×3 (00:34→17:45)
[2020-02-13] MEDS: metroNIDAZOLE 500 MG/100 ML BAG IV SCH ×3 (01:10→17:14)
[2020-02-13] MEDS: ACETAMINOPHEN 500 MG TAB PO SCH ×5 (02:28→23:30)
[2020-02-13] MEDS ORDERED: diphenhydrAMINE Capsule 25 MG CAP PO SCH ×2 (02:30→06:30)
[2020-02-13] MEDS ORDERED: Nursing to Pharmacy Communication SCH ×3 (02:30→22:30)
[2020-02-13] MEDS: PANTOprazole 40 MG TAB PO SCH (06:02)
[2020-02-13] MEDS: VANCOMYCIN HCL 1,000 MG in SODIUM CHLORIDE 0.9% 250 ML IV SCH ×2 (07:03→18:21)
[2020-02-13 07:39] LABS: Hematocrit (blood only) 37.1 % (37-47); Hemoglobin 12.2 g/dL (12.0-16.0); Mean Corpuscular Hemoglobin 30.8 pg (25-34); Mean Corpuscular Hgb Conc 32.9 g/dL (32-36); Mean Corpuscular Volume 93.7 fL (80-100); Platelet Count 233 K/uL (130-400); RDW Coefficient of Variation 12.8 % (11.5-14.5); RDW Standard Deviation 43.9 fL (36.4-46.3); Red Blood Count 3.96 M/uL (4.2-5.4); White Blood Count 4.51 K/uL (4.8-10.8)
[2020-02-13 07:55] LABS: BUN Creatinine Ratio 6.6 (10-20); Calcium 8.6 mg/dl (8.5-10.1); Creatinine Clr Calc Pharmacy 73.6 ml/min; Est GFR (African American) 94.6; Est GFR (Non-African American) 81.6
[2020-02-13] MEDS: [UNRECOGNIZED DRUG - REMARK] OP SCH ×2 (08:06→22:12)
[2020-02-13] MEDS: VERAPAMIL HCL 40 MG PO PRN (08:07)
[2020-02-13] MEDS: VERAPAMIL HCL 40 MG PO SCH (08:09)
[2020-02-13] MEDS: AZTREONAM 1,000 MG in DEXTROSE 5% 100 ML IV SCH ×2 (08:26→16:05)
[2020-02-13] MEDS: ONDANSETRON INJ 2 MG/ML 2 ML VIAL IV PRN (09:00)
--- NOTE | 2020-02-13 09:52 | Hospitalist Progress Note ---
Date of Service February 13, 2020 Assessment & Plan (1) Acute diverticulitis: 49-year-old female who has significant past medical history of HTN, history of Patel's esophagus, GERD, IBS, chronic constipation, rectal prolapse, unspecified bleeding disorder, history of multiple drug allergies including anaphylaxis x2 who presents to ED from PCP secondary to acute diverticulitis unable to take any oral antibiotics due to allergies. ID recommendations appreciated Continue IV aztreonam, Flagyl and vancomycin Continue pretreatment with benadryl Monitor closely for allergies Patient is reluctant to advance diet today and will prefer to start tomorrow. Continue clears for now (2) Multiple drug allergies: (3) Hx of anaphylaxis: (4) HTN (hypertension): Continue clonidine and verapamil home meds (5) GERD (gastroesophageal reflux disease): Hx of barretts Follows [facility] Continue PPI (6) Asthma: Stable (7) Bleeding disorder: Per Admitting provider, Patient reported to have an unspecified bleeding disorder therefore chemical prophylaxis will not be used SCD/TEDS Ambulate Admission and Anticipated Discharge Date Admission Date: February 10, 2020 Subjective Patient seen and examined. Patient reports feeling better today Abdominal pain has resolved. Diarrhea has resolved. Reporting nausea. Denies any headache, dizziness No fevers or chills No chest pain, shortness of breath or cough Patient was started on vancomycin yesterday per ID recommendations and is been tolerating it well with. Treatment with Benadryl No reported allergic reaction since yesterday Physical Exam Constitutional: well developed and + well hydrated; no acute distress Eyes: PERRL, conjunctivae normal, anicteric sclerae ENMT: external ear and nose normal, oropharynx normal Respiratory: normal respiratory effort, lungs clear to auscultation Cardiovascular: RRR, no murmur, no edema Gastrointestinal (Abdomen): normal bowel sounds, soft, nontender, no hepatosplenomegaly Musculoskeletal: no cyanosis or clubbing, extremities motor strength 5/5 Neurologic: PERRL, EOMI, accommodation nl, no face palsy, no dysarthria Psychiatric: A+Ox3, euthymic affect Results & Data Results & Data ([facility]) Vital Signs (Past 12 Hours) Vital Signs Temp Pulse Resp BP Pulse Ox 02/13/20 08:15 36.8 C 61 18 143/87 H 98 02/13/20 07:15 36.7 C 69 18 146/76 H 98 02/13/20 03:06 64 143/74 H 02/13/20 01:13 76 160/88 H 02/12/20 23:00 36.6 C 89 20 172/86 H 100 Laboratory Results Laboratory Results - last 24 hr 02/13/20 02/13/20 07:29 07:29 WBC 4.51 L RBC 3.96 L Hgb 12.2 Hct 37.1 MCV 93.7 MCH 30.8 MCHC 32.9 RDW Std Deviation 43.9 RDW Coeff of Juliane 12.8 Plt Count 233 MPV 11.0 H Sodium 144 Potassium 4.0 Chloride 113 H Carbon Dioxide 28 Anion Gap 4.0 BUN 6 L Creatinine 0.85 Est Cr Clr Drug Dosing 73.6 Est GFR ( Amer) 94.6 Est GFR (Non-Af Amer) 81.6 BUN/Creatinine Ratio 6.6 L Glucose 89 Calcium 8.6
[2020-02-13] MEDS ORDERED: diphenhydrAMINE Capsule 25 MG CAP PO PRN (10:07)
[2020-02-13] MEDS: SODIUM CHLORIDE 0.9% 1000ML 1,000 ML IV SCH ×2 (10:30→23:30)
[2020-02-13] MEDS: diphenhydrAMINE Capsule 25 MG CAP PO SCH ×2 (15:29→23:29)
[2020-02-13] MEDS: SIMETHICONE 40 MG/0.6 ML 30ML PO PRN (15:32)
[2020-02-13] MEDS: CLONIDINE HCL 0.1 MG PO SCH (22:12)
[2020-02-14] MEDS: AZTREONAM 1,000 MG in DEXTROSE 5% 100 ML IV SCH ×3 (00:08→18:41)
[2020-02-14] MEDS: metroNIDAZOLE 500 MG/100 ML BAG IV SCH ×3 (01:31→18:42)
[2020-02-14] MEDS: AZELASTINE ~ ORDER AWAITING ACTION SCH ×3 (02:05→16:11)
[2020-02-14] MEDS: PROBIOTIC PO SCH ×3 (03:30→11:45)
[2020-02-14] MEDS: PANTOprazole 40 MG TAB PO SCH (05:56)
[2020-02-14] MEDS ORDERED: Nursing to Pharmacy Communication SCH (06:15)
[2020-02-14] MEDS ORDERED: VANCOMYCIN TROUGH ONE (06:30)
[2020-02-14] MEDS: VERAPAMIL HCL 40 MG PO SCH (06:39)
[2020-02-14] MEDS: ACETAMINOPHEN 500 MG TAB PO SCH ×2 (06:40→15:40)
[2020-02-14] MEDS: diphenhydrAMINE Capsule 25 MG CAP PO SCH ×2 (06:41→15:40)
[2020-02-14 07:16] LABS: Creatinine Clr Calc Pharmacy 70.3 ml/min; Est GFR (African American) 89.5; Est GFR (Non-African American) 77.2
[2020-02-14] MEDS: VANCOMYCIN HCL 1,000 MG in SODIUM CHLORIDE 0.9% 250 ML IV SCH ×2 (07:17→18:42)
[2020-02-14] MEDS: [UNRECOGNIZED DRUG - REMARK] OP SCH ×2 (08:56→20:58)
--- NOTE | 2020-02-14 09:34 | Hospitalist Progress Note ---
Date of Service February 14, 2020 Assessment & Plan (1) Acute diverticulitis: 49-year-old female who has significant past medical history of HTN, history of Patel's esophagus, GERD, IBS, chronic constipation, rectal prolapse, unspecified bleeding disorder, history of multiple drug allergies including anaphylaxis x2 who presents to ED from PCP secondary to acute diverticulitis unable to take any oral antibiotics due to allergies. ID recommendations appreciated Symptoms improving Continue IV aztreonam, Flagyl and vancomycin Tolerating well Continue pretreatment with benadryl Monitor closely for allergies Diet advanced to full liquid. Will monitor tolerance (2) Multiple drug allergies: (3) Hx of anaphylaxis: (4) HTN (hypertension): Continue clonidine and verapamil home meds (5) GERD (gastroesophageal reflux disease): Hx of barretts Follows [facility] Continue PPI (6) Asthma: Stable (7) Bleeding disorder: Per Admitting provider, Patient reported to have an unspecified bleeding disorder therefore chemical prophylaxis will not be used SCD/TEDS Ambulate Admission and Anticipated Discharge Date Admission Date: February 10, 2020 Subjective Patient seen and examined. Reports intermittent episodes of nausea with vancomycin Had one diarrhea episode yesterday No more abd pain. Overall she is feeling better No longer having any prurtitic reactions Physical Exam Constitutional: well developed and + well hydrated; no acute distress Eyes: PERRL, conjunctivae normal, anicteric sclerae ENMT: external ear and nose normal, oropharynx normal Respiratory: normal respiratory effort, lungs clear to auscultation Cardiovascular: RRR, no murmur, no edema Gastrointestinal (Abdomen): normal bowel sounds, soft, nontender, no hepatosplenomegaly Musculoskeletal: no cyanosis or clubbing, extremities motor strength 5/5 Neurologic: PERRL, EOMI, accommodation nl, no face palsy, no dysarthria Psychiatric: A+Ox3, euthymic affect Results & Data Results & Data ([facility]) Vital Signs (Past 12 Hours) Vital Signs Temp Pulse Resp BP Pulse Ox 02/14/20 06:59 36.5 C 68 17 152/92 H 93 02/13/20 23:25 36.7 C 54 L 16 164/90 H 99 02/13/20 22:10 61 176/82 H Laboratory Results Laboratory Results - last 24 hr 02/14/20 02/14/20 06:30 06:30 Creatinine 0.89 Est Cr Clr Drug Dosing 70.3 Est GFR ( Amer) 89.5 Est GFR (Non-Af Amer) 77.2 Vancomycin Trough 10.9
[2020-02-14] MEDS ORDERED: diphenhydrAMINE Capsule 25 MG CAP PO PRN (11:08)
--- NOTE | 2020-02-14 11:11 | Pharmacy Report ---
Pharmacy Abx Dose Progress Nt - Date of Service February 14, 2020 - Pharmacy Dosing Scope The patient is currently receiving the following antimicrobial agents per Pharmacy consult: VANCOMYCIN 1000mg IV every 12 hours - Objective Vital Signs (Past 12hrs): Vital Signs Temp Pulse Resp BP Pulse Ox 02/14/20 10:09 60 16 160/89 H 100 02/14/20 06:59 36.5 C 68 17 152/92 H 93 02/13/20 23:25 36.7 C 54 L 16 164/90 H 99 Lab Results (24hrs): Laboratory Tests (24 Hours) 02/14/20 02/14/20 06:30 06:30 Creatinine 0.89 Est Cr Clr Drug Dosing 70.3 Vancomycin Trough 10.9 - Assessment & Plan Assessment 49 year old F receiving VANCOMYCIN/AZACTAM/FLAGYL for treatment of diverticulitis. Day # 3 of antimicrobial therapy Plan Vancomycin IV * Trough level of 10.9 mcg/mL is subtherapeutic. * Change to 1000mg IV every 10 hours * Goal trough level for diverticulitis : ~15 mcg/mL * Trough or random level ordered for: []/[]/[] * Will recheck a trough level in a few days or with any changes in renal function. Pharmacy will continue to follow and will adjust dose/frequency as necessary. Thank you.
[2020-02-14] MEDS: SIMETHICONE 40 MG/0.6 ML 30ML PO PRN (11:41)
[2020-02-14] MEDS: SODIUM CHLORIDE 0.9% 1000ML 1,000 ML IV SCH ×2 (11:47→23:56)
[2020-02-14] MEDS: VERAPAMIL HCL 40 MG PO PRN (16:08)
[2020-02-14] MEDS ORDERED: cloNIDine HCL 0.1 MG TAB PO STA ×3 (17:12→20:52)
[2020-02-14] MEDS: cloNIDine HCL 0.1 MG TAB PO SCH ×2 (17:37→20:57)
[2020-02-14] MEDS ORDERED: cloNIDine HCL 0.1 MG TAB PO SCH ×2 (21:00)
[2020-02-15] MEDS: ONDANSETRON INJ 2 MG/ML 2 ML VIAL IV PRN (00:16)
[2020-02-15] MEDS: diphenhydrAMINE Capsule 25 MG CAP PO SCH ×4 (01:11→23:37)
[2020-02-15] MEDS: ACETAMINOPHEN 500 MG TAB PO SCH ×4 (01:11→23:37)
[2020-02-15] MEDS ORDERED: AZTREONAM 1,000 MG in DEXTROSE 5% 100 ML IV SCH (01:15)
[2020-02-15] MEDS: AZELASTINE ~ ORDER AWAITING ACTION SCH ×3 (02:50→16:15)
[2020-02-15] MEDS: metroNIDAZOLE 500 MG/100 ML BAG IV SCH ×3 (02:54→18:16)
[2020-02-15] MEDS: VANCOMYCIN HCL 1,000 MG in SODIUM CHLORIDE 0.9% 250 ML IV SCH ×2 (04:10→14:26)
[2020-02-15] MEDS: PANTOprazole 40 MG TAB PO SCH (05:58)
[2020-02-15] MEDS: VERAPAMIL HCL 40 MG PO SCH (06:00)
[2020-02-15] MEDS: PROBIOTIC PO SCH ×2 (06:05→06:25)
[2020-02-15] MEDS: SIMETHICONE 40 MG/0.6 ML 30ML PO PRN ×2 (06:24→16:51)
[2020-02-15 07:51] LABS: BUN Creatinine Ratio 5.7 (10-20); Calcium 8.1 mg/dl (8.5-10.1); Creatinine Clr Calc Pharmacy 73.6 ml/min; Est GFR (African American) 94.6; Est GFR (Non-African American) 81.6; Potassium 3.2 mmol/L (3.5-5.1)
[2020-02-15] MEDS: AZTREONAM 1,000 MG in DEXTROSE 5% 100 ML IV SCH ×2 (08:15→16:16)
[2020-02-15] MEDS: [UNRECOGNIZED DRUG - REMARK] OP SCH ×2 (08:23→21:00)
[2020-02-15] MEDS ORDERED: POTASSIUM CHLORIDE PWD 20 MEQ PACK PO ONE (08:35)
[2020-02-15] MEDS: VERAPAMIL HCL 40 MG PO PRN ×2 (08:36→14:24)
[2020-02-15] MEDS: cloNIDine HCL 0.1 MG TAB PO SCH ×2 (08:37→21:00)
[2020-02-15] MEDS: SODIUM CHLORIDE 0.9% 1000ML 1,000 ML IV SCH (12:01)
--- NOTE | 2020-02-15 12:21 | Hospitalist Progress Note ---
Date of Service February 15, 2020 Assessment & Plan (1) Acute diverticulitis: 49-year-old female who has significant past medical history of HTN, history of Patel's esophagus, GERD, IBS, chronic constipation, rectal prolapse, unspecified bleeding disorder, history of multiple drug allergies including anaphylaxis x2 who presents to ED from PCP secondary to acute diverticulitis unable to take any oral antibiotics due to allergies. ID recommendations appreciated Symptoms improving Continue IV aztreonam, Flagyl and vancomycin Will complete antibiotics tonight Continue pretreatment with benadryl Monitor closely for allergies Tolerating full liquid diet. Advance to low fiber later today (2) Multiple drug allergies: (3) Hx of anaphylaxis: (4) HTN (hypertension): Continue clonidine and verapamil home meds Clonidine was increased to BID for better BP control yesterday Patient takes prn upto 3x a day at home (5) GERD (gastroesophageal reflux disease): Hx of barretts Follows [facility] Continue PPI (6) Asthma: Stable (7) Bleeding disorder: Per Admitting provider, Patient reported to have an unspecified bleeding disorder therefore chemical prophylaxis will not be used SCD/TEDS Ambulate Plan to discharge in AM Admission and Anticipated Discharge Date Admission Date: February 10, 2020 Subjective Patient seen and examined Reports feeling better today No abd pain, nausea or vomiting No fevers,chills Intermittent diarrhea resolving. Stool is soft today, not watery No chest pain, SOB, cough, palpitation No headache or dizziness this morning Physical Exam Constitutional: well developed and + well hydrated; no acute distress Eyes: PERRL, conjunctivae normal, anicteric sclerae ENMT: external ear and nose normal, oropharynx normal Respiratory: normal respiratory effort, lungs clear to auscultation Cardiovascular: RRR, no murmur, no edema Gastrointestinal (Abdomen): normal bowel sounds, soft, nontender, no hepato splenomegaly Musculoskeletal: no cyanosis or clubbing, extremities motor strength 5/5 Neurologic: PERRL, EOMI, accommodation nl, no face palsy, no dysarthria Psychiatric: A+Ox3, euthymic affect Results & Data Results & Data ([facility]) Vital Signs (Past 12 Hours) Vital Signs Temp Pulse Pulse Pulse Resp BP Pulse Ox 02/15/20 12:01 134/84 02/15/20 10:54 56 L 158/90 H 99 02/15/20 09:36 174/91 H 02/15/20 09:14 66 170/83 H 99 02/15/20 08:26 60 160/88 H 02/15/20 07:43 36.9 C 57 L 14 151/78 H 98 02/15/20 05:57 53 L 139/76 02/15/20 04:00 159/88 H 02/15/20 02:53 90 158/83 H 02/15/20 01:42 76 155/75 H Laboratory Results Laboratory Results - last 24 hr 02/15/20 06:40 Sodium 141 Potassium 3.2 L D Chloride 109 H Carbon Dioxide 29 Anion Gap 3.0 BUN 5 L Creatinine 0.85 Est Cr Clr Drug Dosing 73.6 Est GFR ( Amer) 94.6 Est GFR (Non-Af Amer) 81.6 BUN/Creatinine Ratio 5.7 L Glucose 87 Calcium 8.1 L
[2020-02-15] MEDS ORDERED: FAMOTIDINE 20 MG TAB PO ONE (18:20)
--- NOTE | 2020-02-15 18:49 | XRay Report ---
KUB HISTORY: Right-sided Abdominal pain and feeling bloated COMPARISON: KUB 02/10/2020. FINDINGS: The bowel gas pattern is unremarkable. There are no dilated loops of small bowel to suggest an obstruction. No renal calculi. No ureteral calculi. No pneumoperitoneum or pneumatosis. IMPRESSION: Unremarkable KUB. ACT 112: Negative or not required by law. Electronically signed by: Davey Butler M.D. 02/15/2020 6:48 PM
[2020-02-15 19:42] LABS: Albumin Level 3.5 gm/dl (3.4-5.0); Bilirubin Direct 0.1 mg/dl (0-0.2); Bilirubin,Total 0.4 mg/dl (0.2-1); Total Protein 6.8 gm/dl (6.4-8.2)
[2020-02-16] MEDS: metroNIDAZOLE 500 MG/100 ML BAG IV SCH ×3 (00:12→08:27)
[2020-02-16] MEDS: SODIUM CHLORIDE 0.9% 1000ML 1,000 ML IV SCH (00:12)
[2020-02-16] MEDS: VERAPAMIL HCL 40 MG PO PRN ×2 (00:16→07:43)
[2020-02-16] MEDS: VANCOMYCIN HCL 1,000 MG in SODIUM CHLORIDE 0.9% 250 ML IV SCH (00:18)
[2020-02-16] MEDS: AZELASTINE ~ ORDER AWAITING ACTION SCH ×2 (00:18→08:33)
[2020-02-16] MEDS: ONDANSETRON INJ 2 MG/ML 2 ML VIAL IV PRN (00:56)
[2020-02-16] MEDS: AZTREONAM 1,000 MG in DEXTROSE 5% 100 ML IV SCH (00:59)
[2020-02-16] MEDS: PROBIOTIC PO SCH ×2 (02:29→10:35)
[2020-02-16] MEDS: PANTOprazole 40 MG TAB PO SCH (06:20)
[2020-02-16] MEDS: diphenhydrAMINE Capsule 25 MG CAP PO SCH (07:43)
[2020-02-16] MEDS: ACETAMINOPHEN 500 MG TAB PO SCH (07:43)
[2020-02-16] MEDS: VERAPAMIL HCL 40 MG PO SCH (07:48)
[2020-02-16 07:52] LABS: Hematocrit (blood only) 38.3 % (37-47); Mean Corpuscular Hemoglobin 31.1 pg (25-34); Mean Corpuscular Hgb Conc 33.9 g/dL (32-36); Mean Corpuscular Volume 91.6 fL (80-100); Mean Platelet Volume 11.9 fL (7.4-10.4); Platelet Count 245 K/uL (130-400); RDW Coefficient of Variation 12.7 % (11.5-14.5); RDW Standard Deviation 42.7 fL (36.4-46.3); Red Blood Count 4.18 M/uL (4.2-5.4); White Blood Count 4.72 K/uL (4.8-10.8)
[2020-02-16 08:19] LABS: BUN Creatinine Ratio 4.7 (10-20); Calcium 8.7 mg/dl (8.5-10.1); Creatinine Clr Calc Pharmacy 71.1 ml/min; Est GFR (African American) 90.7; Est GFR (Non-African American) 78.2; Potassium 3.7 mmol/L (3.5-5.1)
--- NOTE | 2020-02-16 09:44 | Discharge Summary ---
Date of Service February 16, 2020 Admission HPI Per Admitting Provider This is a 49-year-old female who has significant past medical history of HTN, history of Patel's esophagus, GERD, IBS, chronic constipation, rectal prolapse, unspecified bleeding disorder, history of multiple drug allergies including anaphylaxis x2 who presents to ED from PCP secondary to acute diverticulitis unable to take any oral antibiotics due to allergies. She states symptoms started approximately 5 days ago when she developed intermittent left lower quadrant pain. Pain would come and go, described as a dull ache but over duration progressed to a sharp stabbing pain. Pain continued to wax and wanes but she did notice change in bowel habits with loose bowels x1. She also elicits nausea, decreased appetite and chills. She takes Tylenol daily and therefore unable to determine if she truly had fever. She denies lightheadedness, dizziness, syncope, chest pain, shortness of breath, cough, URI symptoms, emesis, melena, hematochezia, dysuria, increased urgency frequency of urination. She states she has had anaphylaxis x2 and she was very high-dose regarding antibiotics. She is requesting pretreatment prior to antibiotic with Tylenol and Benadryl. She has had anaphylaxis to cephalosporins and quinolones. Patient was to be a direct admission; however due to limited bed availability was directed to ED with our immediate evaluation. When she arrived she was hemodynamically stable. Mildly hypertensive. Her CBC and CMP was generally unremarkable. Covid screen negative. KUB negative for free air. She did have outpatient work-up yesterday with CT abdomen pelvis which revealed acute uncomplicated diverticulitis of the distal descending colon. She has been tolerating clear liquid diet at home. Admission Exam Per Admitting Provider Constitutional: WD/WN, vitals as above, NAD, sitting up in bed, pleasant, conversing easily Head: Normocephalic, Atraumatic Eyes: PERRL, conjunctivae normal, anicteric sclerae ENMT: external ear and nose normal, oropharynx normal Neck: trachea midline, no thyromegaly normal visual inspection Respiratory: normal respiratory effort, lungs clear to auscultation, no wheeze, rales, rhonchi. Normal insp/exp effort, no accessory muscle use Cardiovascular: RRR, no murmur, no edema Vessels: no JVD or carotid bruit Chest: normal inspection of chest Abdomen: normal bowel sounds, soft, LLQ tender to palpation, no rebound or guarding, no hepatosplenomegaly Musculoskeletal: no cyanosis or clubbing, extremities motor strength 5/5 Skin: no rashes, warm and dry normal turgor Neurologic: PERRL, EOMI, accommodation nl, no face palsy, no dysarthria CN's II-XI intact bilaterally and moves all extremities Psychiatric: A+Ox3, euthymic affect Lymphatic: no cervical or axillary lymphadenopathy : deferred Principal Diagnosis Acute diverticulitis Discharge Exam Constitutional well developed and + well hydrated; no acute distress Eyes PERRL, conjunctivae normal, anicteric sclerae ENMT external ear and nose normal, oropharynx normal Respiratory normal respiratory effort, lungs clear to auscultation Cardiovascular RRR, no murmur, no edema Gastrointestinal (Abdomen) normal bowel sounds, soft, nontender, no hepatosplenomegaly Musculoskeletal no cyanosis or clubbing, extremities motor strength 5/5 Neurologic PERRL, EOMI, accommodation nl, no face palsy, no dysarthria Psychiatric A+Ox3, euthymic affect Discharge Data Allergies Allergy/AdvReac Type Severity Reaction Status Date / Time Bactrim Allergy Severe HIVES/SOB Verified 02/14/17 09:35 cefuroxime Allergy Severe HIVES/SOB Verified 02/10/20 17:30 ciprofloxacin [From Cipro] Allergy Severe tendon Verified 02/10/20 17:30 swelling & muscle pain doxycycline Allergy Severe RASH/SEVERE Verified 02/10/20 17:27 DIARRHEA erythromycin base Allergy Severe HIVES/SOB Verified 02/10/20 17:27 gatifloxacin Allergy Severe HIVES/SOB Verified 02/10/20 17:27 levofloxacin Allergy Severe HIVES/SOB/H Verified 02/10/20 17:27 ALLUCINATIO NS moxifloxacin Allergy Severe HIVES/SOB Verified 02/10/20 17:27 Penicillins Allergy Severe HIVES AND Verified 02/10/20 17:27 SOB Sulfa (Sulfonamide Allergy Severe HIVES/SOB Verified 02/10/20 17:27 Antibiotics) sulfamethoxazole Allergy Severe HIVES/SOB Verified 02/10/20 17:27 trimethoprim Allergy Severe HIVES/SOB Verified 02/10/20 17:30 adhesive Allergy Mild bandaids - Verified 02/10/20 17:30 rash, itchy silver nitrate Allergy Mild rash and Verified 02/10/20 17:30 itchy clindamycin AdvReac Unknown SEVERE Verified 02/10/20 17:30 DIARRHEA/ABDOMINAL CRAMPING ? airway restriction nickel AdvReac Itching, Verified 02/10/20 17:30 Rash Consultations 02/10/20 18:09 Consult Case Management - Discharge Planning Routine Consult Infectious Diseases Routine OUTPATIENT CT SCAN EXAM: CT ABD/PELVIS WO IV CONTRAST - W ORAL CONTRAST DATE and TIME: 02/09/2020 5:47 pm HISTORY CLINICAL INFORMATION: left sided abd pain worse in LLQ - 5 days. r/o diverticulitis TECHNIQUE Oral Contrast: Oral contrast was administered IV Contrast: Intravenous contrast was not administered COMPARISON CT ABDOMEN /PELVIS WITH IV CONTRAST WITH ORAL dated 07/03/2011 FINDINGS LINES AND DEVICES: None LOWER CHEST: HEART(visualized): The heart is normal in size. There is a simple trace pericardial effusion. LUNG BASES: The lung bases are unremarkable. LIVER: The liver is normal in size with smooth contours and homogeneous attenuation. No focal abnormality is identified on this noncontrast study. BILE DUCTS: There is no intrahepatic or extrahepatic biliary duct dilatation. GALLBLADDER: The gallbladder is normally distended without a radiopaque calculus, wall thickening, or pericholecystic inflammation. PANCREAS: The pancreas is normal in size. There is no pancreatic or peripancreatic inflammation or fluid collection. The pancreatic duct is normal in size. SPLEEN: The spleen is normal in size. No focal abnormality is visualized on this non-contrast study. ADRENALS: Normal. KIDNEYS/URETERS: The kidneys are normal in size. There is a 3 mm calculus in the lower pole of the right kidney. No left-sided calculi are identified. There is no hydroureteronephrosis, contour deforming lesion, or perinephric fluid. BLADDER: The urinary bladder is physiologically distended without a bladder calculus or perivesicular inflammation. BOWEL: There is focal pericolonic inflammation adjacent to a diverticulum in the distal descending colon, consistent with acute diverticulitis. Mild associated wall thickening of the distal descending colon is also noted. A few additional noninflamed diverticula are seen in the transverse colon. No other areas of bowel wall thickening identified. The small and large bowel are normal in caliber, without evidence of inflammation. The appendix is not identified, but there is no pericecal inflammation. The stomach is unremarkable. LYMPH NODES: There are no enlarged or suspicious abdominal or pelvic lymph nodes. VESSELS: The aorta and its branch vessels are normal in caliber. There is mild atherosclerotic calcification. REPRODUCTIVE ORGANS: The uterus is absent. There is no adnexal mass. PERITONEUM/RETROPERITONEUM: Trace free fluid is seen in the left pericolic gutter adjacent to the distal descending colon. There is no fluid collection or free air. ABDOMINAL WALL/SOFT TISSUES: Unremarkable BONES: There is no suspicious osseous lesion. Mild degenerative changes are seen in the visualized lower thoracic spine. IMPRESSION IMPRESSION 1. Acute uncomplicated diverticulitis of the distal descending colon. 2. Nonobstructing 3 mm calculus in the lower pole of the right kidney. Hospital Course (1) Acute diverticulitis: 49-year-old female who has significant past medical history of HTN, history of Patel's esophagus, GERD, IBS, chronic constipation, rectal prolapse, unspecified bleeding disorder, history of multiple drug allergies including anaphylaxis x2 who presents to ED from PCP secondary to acute diverticulitis unable to take any oral antibiotics due to allergies. Due to patient's multiple allergies to multiple antibiotics, she was admitted for IV antibiotics Patient had a few episodes of pruritus with initial antibiotic doses which did not recur Was pretreated benadryl prior to iv antibiotics Abdominal pain resolved Still has occasional diarrhea episode Infectious disease evaluated patient as well Was treated with IV aztreonam, Flagyl and vancomycin. Complete antibiotics inpatient Continue to advance diet as tolerated Patient need to follow up with GI outpatient for possible colonoscopy in 6-8 weeks (2) Multiple drug allergies: (3) Hx of anaphylaxis: (4) HTN (hypertension): Continue clonidine and verapamil home meds Patient had episodes of elevated BP inpatient, requiring extra doses of antihypertensives She reported she already has appointments with her Thermostat Maker ALso follow up with her neurologist for continued management of her migraines (5) GERD (gastroesophageal reflux disease): Hx of barretts Follows [facility] Continue PPI (6) Asthma: Stable Total Time Total Time Spent Total Time Spent (In Minutes): 65 Total Time Includes: Examination of the Patient, Discharge Planning and Medication Reconciliation Discharge Plan Discharge Items Patient Disposition: Home - Self-Care Reason For Visit: ACUTE DIVERTICULITIS Discharge Diagnosis: Acute diverticulitis Activity: Resume your previous activity Non-emergency contact: Primary Care Provider and Customer Technical Services Manager Follow-up/Referrals: Yohan Ferris MD [Primary Care Provider] - (Date & Time 02/22/2020 3:00 PM Provider Jayjay Chirinos DO Department General Internal Medicine [facility] ) Diet: Low Fiber Addtl Attending Provider Instructions: Mrs Méndez. You came to the hospital with abdominal pain and after outpatient CT scan showed acute diverticulitis. You were admitted and started on iv antibiotics. You were treated with iv vancomycin, metronidazole and aztreonam. Due to your multiple allergies to antibiotics, you had to stay inpatient to complete antibiotic therapy. You required pretreatment with benadryl prior to the antibiotics. Your symptoms are improving. Please follow up with your Customer Technical Services Manager who may get a colonoscopy in 6-8 weeks. Continue to follow up with your Primary Doctor, Neurologist and Thermostat Maker. Continue your home medications Continue to advance your diet as we discussed It was a pleasure taking care of you. Pending Studies at Discharge: No Stand-Alone Forms: My [facility] eyefactive, Smoking Cessation Medications and DC Order Prescriptions: Continued fexofenadine 180 mg Tablet 180 mg PO DAILY PRN (Reason: allergies) RF: 0 tramadol 50 mg Tablet 50 mg PO BID PRN (Reason: Pain) RF: 0 methocarbamol 750 mg Tablet 750 mg PO TID PRN (Reason: muscle spasms) RF: 0 pantoprazole 40 mg Tablet,Delayed Release (Dr/Ec) 40 mg PO DAILYBB RF: 0 Premarin 0.625 mg/gram Cream 0.625 mg VAGINAL SUTH RF: 0 azelastine 137 mcg (0.1 %) Aerosol,[place] 1 spray INTRANASAL BID RF: 0 ondansetron 4 mg Tablet,Disintegrating 4 mg PO Q6H PRN (Reason: Nausea) RF: 0 dicyclomine 10 mg Capsule 10 mg PO QID PRN (Reason: Abdominal Pain) RF: 0 cholecalciferol (vitamin D3) 125 mcg (5,000 unit) Tablet 125 mcg PO Q2D RF: 0 Bepreve 1.5 % Drops 1 drp OPHTHALMIC (EYE) BID RF: 0 desonide 0.05 % Cream 1 applic TOPICAL BID PRN (Reason: ..) RF: 0 verapamil 40 mg tablet 40 mg PO QAM RF: 0 simethicone 180 mg Capsule 180 mg PO BID PRN (Reason: gas/bloating) RF: 0 hydrocortisone valerate 0.2 % Cream 1 applic TOPICAL HS PRN (Reason: ..) RF: 0 fluocinonide 0.05 % gel 1 applic TOPICAL BID PRN (Reason: irritation) RF: 0 calcium carbonate [Tums] 300 mg (750 mg) Tablet,Chewable 300 mg PO Q4 PRN (Reason: Acid Reflux) RF: 0 acetaminophen [Tylenol Extra Strength] 500 mg Tablet 500 mg PO QID PRN (Reason: Pain) RF: 0 triamcinolone acetonide 0.025 % Cream 1 applic TOPICAL BID PRN (Reason: breakouts) RF: 0 ascorbic acid (vitamin C) [Vitamin C] 500 mg Tablet 500 mg PO DAILY PRN (Reason: if gets sick) RF: 0 diphenhydramine HCl [Benadryl] 25 mg Capsule 25 mg PO HS PRN (Reason: Sleep) RF: 0 albuterol sulfate [Ventolin HFA] 90 mcg/actuation Hfa Aerosol Inhaler 1 - 2 puff INHALATION Q4 PRN (Reason: Shortness Of Breath Or Wheezing) RF: 0 diphenhydramine-acetaminophen [Tylenol PM Extra Strength] 25-500 mg Tablet 1 tab PO HS PRN (Reason: Sleep) RF: 0 Align 4 mg Capsule 4 mg PO BID RF: 0 QNASL 80 mcg/actuation HFA aerosol inhaler 1 spray INTRANASAL BID RF: 0 guaifenesin [Mucinex] 600 mg Tablet Extended Release 12hr 600 mg PO Q12H RF: 0 ynqcigtepc-fwhnkjgqmeatq-nukq 50-325-40 mg Tablet 1 tab PO Q6H PRN (Reason: Migraine Headache) RF: 0 clonidine HCl [Catapres] 0.1 mg tablet 0.05 mg PO HS RF: 0 Discharge Orders: Discharge Order (Routine); Ordered 02/16/20 Ordered By: Kelin Isbell/Other Patient Handouts: Low-Fiber Diet Admission Data Admit Date/Time: 02/10/20 15:50 Attending Provider: Kelin Marin I. Admit Provider: Nate Huff Primary Care Provider: Yohan Ferris Other Providers: Herny Aguilar ; Donal Pardo ; Jareth Balbuena I. ; Travis Carney II ; Alison Epps ; Tamir Solomon ; Nate Huff Other Interventions: Discharge Summary Assessment (RN) Last Done: 02/16/20 10:37
[2020-02-16] MEDS: cloNIDine HCL 0.1 MG TAB PO SCH (10:34)
[2020-02-16] MEDS: [UNRECOGNIZED DRUG - REMARK] OP SCH (10:34)
== END 2020-02-16 13:11 | disposition home or self-care (01) | DRG 392 ==
LOC: ED 15:37 → SUATTDRO 15:50 → 2N 15:50 → 3N 02-13 10:38

== ENCOUNTER 2024-10-08 22:26 | Observation (INO) ==
--- NOTE | 2024-10-08 22:56 | Emergency Department Note ---
History of Present Illness General Chief complaint: Neuro Symptoms/Deficit Stated complaint: MIGRAINE, DIFFICULTY FINDING WORDS Time Seen by Provider: 10/08/24 22:34 History of Present Illness Maximum Pain Intensity: 5 This 54-year-old female with a history of migraines presents the ER complaining of a migraine. Patient states that for started off with visual deficit in her right eye when she was at the computer and then developed a migraine and then had difficulty word finding. She states her vision is back to normal but was concerned and came in. She states her word finding is back to baseline now. Patient denies chest pain, dyspnea, numbness, tingling, localized weakness, vision loss, balance problems or any other medical complaints. She did not take anything for her migraines. Home Medications Medication Instructions Recorded Confirmed Type acetaminophen 500 mg tablet 500 mg PO QID PRN Pain 02/10/20 03/09/24 History (Tylenol Extra Strength) albuterol sulfate 90 mcg/actuation 1 - 2 puff inhalation Q4 PRN 02/10/20 03/09/24 History aerosol inhaler (Ventolin HFA) Shortness Of Breath Or Wheezing ascorbic acid (vitamin C) 500 mg 500 mg PO DAILY PRN if gets sick 02/10/20 03/09/24 History tablet (Vitamin C) bepotastine besilate 1.5 % eye 1 drp ophthalmic (eye) BID 02/10/20 03/09/24 History drops (Bepreve) calcium carbonate (Tums) 300 mg PO Q4 PRN Acid Reflux 02/10/20 03/09/24 History cholecalciferol (vitamin D3) 125 125 mcg PO Q2D 02/10/20 03/09/24 History mcg (5,000 unit) tablet desonide 0.05 % topical cream 1 applic topical BID PRN .. 02/10/20 03/09/24 History dicyclomine 10 mg capsule 10 mg PO QID PRN Abdominal Pain 02/10/20 03/09/24 History diphenhydramine HCl 25 mg capsule 25 mg PO HS PRN Sleep 02/10/20 03/09/24 History (Benadryl) fluocinonide 0.05 % topical gel 1 applic topical BID PRN irritation 02/10/20 03/09/24 History guaifenesin 600 mg tablet, 600 mg PO Q12H 02/10/20 03/09/24 History extended release 12 hr (Mucinex) hydrocortisone valerate 0.2 % 1 applic topical HS PRN .. 02/10/20 03/09/24 History topical cream simethicone 180 mg capsule 180 mg PO BID PRN gas/bloating 02/10/20 03/09/24 History triamcinolone acetonide 0.025 % 1 applic topical BID PRN breakouts 02/10/20 03/09/24 History topical cream prednisone 20 mg tablet 20 mg PO .COMPLEX 3 days #6 tabs 09/07/22 03/09/24 Rx Bifidobacterium infantis 4 mg 4 mg PO DAILY 02/22/23 03/09/24 History capsule (Align (B.infantis)) fexofenadine 180 mg tablet 180 mg PO DAILY allergies 02/22/23 03/09/24 History tramadol 50 mg tablet 50 mg PO BID PRN Pain #15 tabs 02/22/23 03/09/24 Rx methocarbamol 750 mg tablet 750 mg PO TID PRN muscle spasms 02/24/24 03/09/24 Rx #270 tabs ondansetron 4 mg disintegrating 4 mg PO Q8H PRN Nausea #21 tabs 02/24/24 03/09/24 Rx tablet pantoprazole 40 mg tablet,delayed 40 mg PO DAILYBB PRN 02/24/24 03/09/24 History release rimegepant 75 mg disintegrating 75 mg PO ONCE PRN migraine 02/24/24 03/09/24 Rx tablet (Nurtec ODT) headache #8 tabs amlodipine 2.5 mg tablet 2.5 mg PO DAILY PRN HTN #90 tabs 03/06/24 03/09/24 Rx clonidine HCl 0.1 mg tablet 0.05 mg (1/2 x 0.1 mg) PO HS #270 03/06/24 03/09/24 Rx tabs cyanocobalamin (vitamin B-12) 1,000 mcg PO DAILY 03/09/24 03/09/24 History 1,000 mcg capsule conjugated estrogens 0.625 mg/gram 0.625 mg vaginal SUTH #30 grams 08/04/24 Rx vaginal cream (Premarin) Allergies Allergy/AdvReac Type Severity Reaction Status Date / Time ciprofloxacin [From Cipro] Allergy Severe tendon Verified 03/09/24 14:27 swelling & muscle pain doxycycline Allergy Severe RASH/SEVERE Verified 03/09/24 14:27 DIARRHEA erythromycin base Allergy Severe HIVES/SOB Verified 03/09/24 14:27 adhesive Allergy Mild bandaids - Verified 03/09/24 14:27 rash, itchy silver nitrate Allergy Mild rash and Verified 03/09/24 14:27 itchy verapamil AdvReac Unknown constipatio Verified 03/09/24 14:27 n nickel AdvReac Itching, Verified 03/09/24 14:27 Rash Past Med/Surg History Problem List (Updated 10/09/24 @ 00:18 by Umu Elliott PA-C) Migraine (Acute) Agatston coronary artery calcium score less than 100 Iron deficiency Arterial atherosclerosis Allergic rhinitis due to dust mite Impacted cerumen of both ears Vulva neoplasm Cystocoele Allergic rhinitis Multiple drug allergies Recurrent infections Migraine with aura and without status migrainosus, not intractable Hx of anaphylaxis Bleeding disorder unspecified bleeding disorder does not take anticoagulation, blood thinners, NSAIDS Sciatica of left side Left hip pain Diplopia Vitamin D deficiency Thoracic spine pain Cervical radicular pain Cervical spine pain Arthritis (Acute) Asthma (Acute) Atrial ectopy (Acute) Breast lump (Acute) Cervical polyp (Acute) Chest pain (Acute) Chronic sinusitis (Acute) Disease of jaw (Acute) Dyspareunia (Acute) Fatigue (Acute) Female pelvic pain (Acute) History of constipation (Acute) Hypercholesterolemia (Acute) Lightheadedness (Acute) MRI of brain abnormal (Acute) Menopausal symptoms (Acute) Palpitations (Acute) Postmenopausal atrophic vaginitis (Acute) Premature menopause (Acute) Raynauds phenomenon (Acute) Shortness of breath on exertion (Acute) Stress incontinence in female (Acute) TMJ (temporomandibular joint syndrome) (Acute) Urinary tract infection (Acute) Vaginitis (Acute) Vasovagal syncope (Acute) Ventricular ectopy (Acute) Vitamin B12 deficiency (Acute) Sinus infection Migraine Bleeding tendency Endometriosis (Acute 02/02/13) GERD (gastroesophageal reflux disease) (Chronic) Patel's esophagus (Chronic) Borderline high cholesterol (Chronic) Medical History Stomach ulcer Seasonal allergies Asthma Surgical History History of tympanostomy History of colonoscopy History of esophagogastroduodenoscopy (EGD) S/P hysterectomy with oophorectomy S/P sinus surgery Status post fine needle aspiration History of laparoscopy History of hysterectomy History of appendectomy History of dilation and curettage History of sinus surgery History of hernia repair Family History Father Myocardial infarction Cardiac disorder Deafness AVD (aortic valve disease) Heart disease Family/Other AVD (aortic valve disease) Bleeding disorder Asthma Cardiac disorder Deafness Hypertension Allergies Grandfather Heart disease Grandmother Heart disease Other Cancer Stroke Denies family history of Ovarian cancer Prostate cancer Hearing loss No family history of adverse response to anesthesia Breast cancer Colorectal cancer Social History Smoking Status: Never smoker Do You Dip or Chew Tobacco: No; Hx Alcohol Use: No Hx Substance Use: No Preferred Language: Nepali Communication Ability: Effective 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 Beliefs That Will Affect Care: None marital status: Current Living Situation: Spouse and Family current occupational status: retired Feels Safe at Home: Yes Assistive Devices: None Review of Systems A total of 10 systems reviewed and were otherwise negative Physical Exam Vital Signs Vital Signs - 24 hr 10/08/24 22:27 10/08/24 23:03 10/08/24 23:10 Temperature 36.6 C Temperature Source Temporal Artery Scan Pulse Rate 78 72 Pulse Rate [Right Finger] 76 Pulse Rhythm Regular Pulse Strength Normal Respiratory Rate 18 21 Respiratory Effort / Characteristics Non-Labored Spontaneous Non-Labored Spontaneous Respiratory Depth Normal Normal Respiratory Pattern Regular Blood Pressure 178/88 H Blood Pressure [Right Arm] 172/88 H Blood Pressure Mean 118 Blood Pressure Mean [Right Arm] 116 Blood Pressure Position Sitting Pulse Oximetry 100 98 Oxygen Delivery Method Room Air Room Air Sepsis Recent Fever Within 48 Hours No Sepsis New/Unexplained Change in Mental Status N/A Sepsis Action Taken by Nursing No Action Required 10/08/24 23:11 10/08/24 23:26 10/08/24 23:41 Temperature Temperature Source Pulse Rate Pulse Rate [Right Finger] 77 65 66 Pulse Rhythm Pulse Strength Respiratory Rate 14 16 18 Respiratory Effort / Characteristics Non-Labored Spontaneous Non-Labored Spontaneous Non-Labored Spontaneous Respiratory Depth Normal Normal Normal Respiratory Pattern Blood Pressure Blood Pressure [Right Arm] 163/105 H 159/90 H 124/82 Blood Pressure Mean Blood Pressure Mean [Right Arm] 124 113 96 Blood Pressure Position Pulse Oximetry 100 98 97 Oxygen Delivery Method Room Air Room Air Room Air Sepsis Recent Fever Within 48 Hours Sepsis New/Unexplained Change in Mental Status Sepsis Action Taken by Nursing 10/08/24 23:56 10/09/24 00:11 Temperature Temperature Source Pulse Rate Pulse Rate [Right Finger] 64 64 Pulse Rhythm Pulse Strength Respiratory Rate 20 22 Respiratory Effort / Characteristics Non-Labored Spontaneous Non-Labored Spontaneous Respiratory Depth Normal Normal Respiratory Pattern Blood Pressure Blood Pressure [Right Arm] 126/76 114/68 Blood Pressure Mean Blood Pressure Mean [Right Arm] 92 83 Blood Pressure Position Pulse Oximetry 97 97 Oxygen Delivery Method Room Air Room Air Sepsis Recent Fever Within 48 Hours Sepsis New/Unexplained Change in Mental Status Sepsis Action Taken by Nursing VITALS: Vitals are noted on the nurse's note and reviewed by myself. Vital signs stable. GENERAL: Pleasant female with present, in no acute distress, nondiaphoretic, well-developed well-nourished. SKIN: The skin was without rashes, erythema, edema, or bruising. There is no tenting of the skin. Capillary reflex less than 2 seconds. HEAD: Normocephalic atraumatic. EARS: External auditory canals clear EYES: Pupils equal round and reactive to light and accommodation. Conjunctivae without injection, sclerae without icterus. Extraocular movements intact. NOSE: Patent, no discharge. MOUTH: Mucous membranes moist. Pharynx without erythema or exudate. Uvula midline. Airway patent. Tongue does not deviate. NECK: Supple without nuchal rigidity. No lymphadenopathy. No thyromegaly. Cervical spine is nontender. No JVD. HEART: Regular rate and rhythm LUNGS: Clear to auscultation bilaterally without wheezes, rales or rhonchi. No retractions or accessory muscle use. ABDOMEN: Positive bowel sounds x 4. Normal tympanic percussion. Soft, nontender, without masses or organomegaly. Rooney sign negative. No guarding or rebound tenderness. No CVA tenderness MUSCULOSKELETAL: No muscle atrophy, erythema, or edema noted. 5 out of 5 strength throughout. NEURO: Patient was alert and oriented to person place and time. Normal sensation to light and sharp touch. Cranial nerves II through XII grossly intact. No pronator drift. Cerebellar exam intact. No focal neurological deficits. Course Administered Medications Discontinued Medications Diphenhydramine HCl (Diphenhydramine 50 Mg/Ml Vial) 25 mg IV NOW STA Stop: 10/08/24 22:42 Last Admin: 10/08/24 23:04 Dose: 25 mg Documented By: STEFANIE Sodium Chloride (Nss) 1,000 mls @ 999 mls/hr IV .Q1H1M ONE Stop: 10/08/24 23:41 Last Infusion: 10/09/24 00:32 Dose: Infused Documented By: Admin: 10/08/24 23:04 Dose: 999 mls/hr Documented By: STEFANIE Ioversol (Optiray 320 125ml) 125 ml IV ONCE ONE Stop: 10/08/24 23:08 Last Admin: 10/08/24 23:07 Dose: 118 ml Documented By: PATITO Metoclopramide HCl (Metoclopramide Hcl Inj 5 Mg/Ml 2 Ml Vial) 10 mg IV NOW STA Stop: 10/08/24 22:42 Last Admin: 10/08/24 23:04 Dose: 10 mg Documented By: STEFANIE Medical Decision Making Medical Records Attestation: I reviewed the patient's medical records. Home Medications Current Medication List: was personally reviewed by me Laboratory Data Attestation: I reviewed the patient's lab results. 10/08/24 22:43 10/08/24 22:43 Lab Results 10/08/24 10/08/24 Range/Units 22:43 22:51 WBC 5.77 (4.8-10.8) K/ul RBC 4.82 (4.20-5.40) M/uL Hgb 14.8 (12.0-16.0) g/dl POC Hgb 15.3 (12.0-16.0) g/dl Hct 44.9 (37.0-47.0) % POC Hct 45 (37-47) % MCV 93.2 (80.0-100.0) fL MCH 30.7 (25.0-34.0) pg MCHC 33.0 (32.0-36.0) g/dL RDW Std Deviation 42.9 (36.4-46.3) fL RDW Coeff of Juliane 12.6 (11.5-14.5) % Plt Count 283 (130-400) K/uL MPV 11.3 (9.4-12.4) fL Immature Gran % (Auto) 0.2 % Neut % (Auto) 47.1 % Lymph % (Auto) 36.0 % Berrien % (Auto) 10.1 % Eos % (Auto) 5.7 % Baso % (Auto) 0.9 % Neut # (Auto) 2.72 (1.40-6.50) K/uL Lymph # (Auto) 2.08 (1.20-3.40) K/uL Berrien # (Auto) 0.58 (0.11-0.59) K/uL Eos # (Auto) 0.33 (0.00-0.50) K/uL Baso # (Auto) 0.05 (0.00-0.20) K/uL Immature Gran # (Auto) 0.01 (0.01-0.20) K/uL PT 10.1 (9.0-12.0) Seconds INR 0.9 (0.9-1.1) APTT 25 (21-31) Seconds PTT Ratio 0.9 POC Sodium 140 (135-144) mmol/L Sodium 138 (136-145) mmol/L POC Potassium 3.9 (3.3-5.0) mmol/L Potassium 3.9 (3.5-5.1) mmol/L POC Chloride 101 (101-112) mmol/L Chloride 102 (98-107) mmol/L Carbon Dioxide 30 (21-32) mmol/L POC Total CO2 28 (24-31) mmol/L Anion Gap 6 (3-11) POC Anion Gap 16.0 (16-25) mmol/L POC BUN 10 (7-18) mg/dl BUN 11 (6-23) mg/dl Creatinine 0.97 (0.6-1.2) mg/dl POC Creatinine 1.1 (0.6-1.3) mg/dl Est Cr Clr Drug Dosing 61.0 ml/min eGFR 70.31 BUN/Creatinine Ratio 11.3 (10-20) Glucose 100 H (70-99(Fasting)) mg/dl POC Glucose (other) 96 (70-99) mg/dl Calcium 9.2 (8.6-10.3) mg/dl POC Ioniz Calcium Dennise 1.13 (1.12-1.32) mmol/l Magnesium 1.9 (1.7-2.4) mg/dl Total Bilirubin 0.6 (0.2-1.0) mg/dl AST 18 (13-39) U/L ALT 10 (7-52) U/L Alkaline Phosphatase 57 (34-104) U/L Troponin I High Sens 3.3 (0-14) pg/ml Total Protein 7.8 (6.0-8.3) gm/dl Albumin 4.5 (3.4-5.0) gm/dl Globulin 3.3 (2.5-4.0) gm/dl Albumin/Globulin Ratio 1.4 (0.9-2) HCG, Qual Negative (Negative) Imaging Data Attestation: I personally reviewed and interpreted this imaging study as follows: Radiologist's Impression: Head CT 10/08/24 22:41 Exam(s): CT HEAD Without Contrast EXAM: CT Head Without Intravenous Contrast CLINICAL HISTORY: Reason for exam: neuro deficit, acute stroke suspected. TECHNIQUE: Axial computed tomography images of the head/brain without intravenous contrast. CTDI is 37.51 mGy and DLP is 546.36 mGy-cm. Automated exposure control was utilized for the study. A dose lowering technique was utilized adhering to the principles of ALARA. COMPARISON: Prior brain MRI from February 05, 2018. FINDINGS: Brain: Unremarkable. No hemorrhage. No significant white matter disease. No edema. Ventricles: Unremarkable. No ventriculomegaly. Bones/joints: Unremarkable. No acute fracture. Soft tissues: Unremarkable. Sinuses: This post endoscopic sinus surgery. No acute sinusitis. Mastoid air cells: Unremarkable as visualized. No mastoid effusion. IMPRESSION: No evidence of acute intracranial pathology. Electronically signed by: Irene Parker MD 10/08/24 23:44 PM Head CTA 10/08/24 22:41 Exam(s): CTA HEAD With Contrast IV Amt: 118 ml optiray 320 EXAM: CT Angiography Head With Intravenous Contrast CLINICAL HISTORY: Reason for exam: neuro deficit, acute stroke suspected. TECHNIQUE: Axial computed tomographic angiography images of the head with intravenous contrast. Automated exposure control was utilized for the study. A dose lowering technique was utilized adhering to the principles of ALARA. MIP reconstructed images were created and reviewed. CONTRAST: Patient received 118 ml optiray 320 of IV contrast COMPARISON: No relevant prior studies available. FINDINGS: The dural venous sinuses are patent. Right internal carotid artery: No acute findings. Intracranial segment is patent with no significant stenosis. No aneurysm. Right anterior cerebral artery: Unremarkable. No occlusion or significant stenosis. No aneurysm. Right middle cerebral artery: Unremarkable. No occlusion or significant stenosis. No aneurysm. Right posterior cerebral artery: Unremarkable. No occlusion or significant stenosis. No aneurysm. Right vertebral artery: Unremarkable as visualized. Left internal carotid artery: No acute findings. Intracranial segment is patent with no significant stenosis. No aneurysm. Left anterior cerebral artery: Unremarkable. No occlusion or significant stenosis. No aneurysm. Left middle cerebral artery: Unremarkable. No occlusion or significant stenosis. No aneurysm. Left posterior cerebral artery: Unremarkable. No occlusion or significant stenosis. No aneurysm. Left vertebral artery: Unremarkable as visualized. Basilar artery: Unremarkable. No occlusion or significant stenosis. No aneurysm. IMPRESSION: Negative CT angiogram of the head. Electronically signed by: Irene Parker MD 10/08/24 23:47 PM Neck CTA 10/08/24 22:41 Exam(s): CTA NECK With Contrast IV Amt: 118 ml optiray 320 EXAM: CT Angiography Neck With Intravenous Contrast CLINICAL HISTORY: Reason for exam: neuro deficit, acute stroke suspected. TECHNIQUE: Routine carotid CT angiography protocol was performed with intravenous contrast. NASCET criteria using the distal ICAs for comparison were used for evaluation of stenoses. CTDI is 10.82 mGy and DLP is 403.57 mGy-cm. Automated exposure control was utilized for the study. A dose lowering technique was utilized adhering to the principles of ALARA. MIP reconstructed images were created and reviewed. CONTRAST: Patient received 118 ml optiray 320 of IV contrast COMPARISON: None. FINDINGS: VASCULATURE: Right common carotid artery: Unremarkable. No occlusion or significant stenosis. No dissection. Right internal carotid artery: Unremarkable. Extracranial segment is patent with no occlusion or significant stenosis. No dissection. Right external carotid artery: Unremarkable. No occlusion. Right vertebral artery: Unremarkable. No occlusion or significant stenosis. No dissection. Left common carotid artery: Unremarkable. No occlusion or significant stenosis. No dissection. Left internal carotid artery: Unremarkable. Extracranial segment is patent with no occlusion or significant stenosis. No dissection. Left external carotid artery: Unremarkable. No occlusion. Left vertebral artery: Unremarkable. No occlusion or significant stenosis. No dissection. NECK: Bones/joints: There is a severe spinal canal stenosis at C6-7 fluid No acute fracture. Soft tissues: Prominent cervical lymph nodes. Lung apices: Clear. CAROTID STENOSIS REFERENCE USING NASCET CRITERIA: % ICA stenosis = (1 - narrowest ICA diameter/diameter of distal cervical ICA) x 100. Mild - <50% stenosis. Moderate - 50-69% stenosis. Severe - 70-94% stenosis. Near occlusion - 95-99% stenosis. Occluded - 100% stenosis. IMPRESSION: Negative CTA neck. Electronically signed by: Irene Parker MD 10/08/24 23:38 PM [facility] Narrative Prior records/ancillary studies reviewed. Additional history obtained from family. Triage Nursing notes reviewed. The patient's history was concerning for headache with vision changes and difficulty word finding. Differential diagnosis: Etiologies such as migraine headache, neurological, stroke, meningitis, sinusitis, CO exposure, ICH, SAH, infection, tumor, headache, sinus thrombosis, arterial dissection, as well as others were entertained. Physical examination findings: As above. Non-focal. ER treatment provided: Reglan, Benadryl, IV fluids Stroke workup was initiated NIH 0 On reassessment the patient felt better. Diagnostics interpreted by me: ECG: Ordered for weakness EKG: Normal sinus, normal intervals, no acute ST-T wave changes, rate of 57. Impression sinus bradycardia independently interpreted by myself The labs Independently Interpreted by myself revealed no worrisome leukocytosis, stable H&H, negative hCG Imaging studies: Imaging was reviewed and read by radiology TIA Score: Age > 60:(1) 0 BP >140 >90 (1): 0 Clinical features (unilateral weakness) (2): 0 CF speech disturbance (1): 1 Duration of symptoms 10-60min (1): 1 Duration >60min (2): 0 Diabetes (1): 0 Score @ 2days @ 7days @ 90days 0-3 low 1% 1.2% 3.1% 4-5 mod 4.1% 5.9% 9.8% 6-7 high 8.1% 11.7% 17.8% Total: 2 Consultation: A consultation was placed with the hospitalist. The case was discussed and diagnostics were reviewed. The patient was evaluated in the ER for further treatment. This appears to be consistent with most likely migraine but could be a TIA. Patient would like to stay for admission. I felt this is reasonable. TIA score was 2. She is back to baseline. She is feeling better with the migraine cocktail. Medicine was consulted and case discussed. She will be evaluated for admission. Brain MRI was ordered and pending at time of admission. By the evaluation outlined above emergent etiologies such as meningitis, sinusitis, CO exposure, ICH, SAH, infection, temporal arteritis, tumor, sinus thrombosis, arterial dissection, as well as others were deemed relatively unlikely. The pt informed about the findings as listed above. All questions were answered and pleased with the treatment. The chart was completed utilizing [employer] Speech voice recognition software. Grammatical errors, random word insertions, pronoun errors, and incomplete sentences are an occassional consequence of this system due to software limitations, ambient noise, and hardware issues. Any formal questions or concerns about the content, text, or information contained within the body of this dictation should be directly addressed to the physician operations administrative assistant for clarification. Impression & Plan Migraine Discharge Plan Visit Data Chief Complaint: Neuro Symptoms/Deficit Stated Complaint: MIGRAINE, DIFFICULTY FINDING WORDS ED Provider: Josafat Chao ED Midlevel Provider: Umu Elliott Discharge Problem: Migraine Patient Disposition: Being Evaluated by Hospitalist Condition: Good Discharge Instructions Sukhi/Other Patient Handouts: Migraine Prevention Activity Restrictions/Additional Instructions: DO NOT drive, drink alcohol, operate machinery, or perform dangerous activities today. You were given medications in the ER that can affect your ability to safely function or operate a vehicle. Rest today in a quiet, peaceful, dark environment and get a full 8-10 hrs of sleep tonight. Avoid loud noises, smoke/smoking, alcohol, bright lights, stress, or physical exertion today to minimize the chance the headache may return. Continue current medications. Ibuprofen(Motrin, Advil) may be used for fever or pain. Use 400mg every six hours as needed. Take with food. Avoid using more than 1600mg in a 24 hour period. Do not use 1600mg per day for more than three consecutive days without physician direction. Prolonged inappropriate use can lead to stomach upset or ulcers. (AND/OR) Acetaminophen(Tylenol) may be used for fever or pain. Use 1000mg every six hours as needed. Avoid using more than 3000mg in a 24 hour period. Return to the ER for passing out, worsening headache, vision problems, neck stiffness/pain, fevers, vomiting, worsening of your condition, or as needed. Follow up with your primary physician and/or a neurologist in 2-3 days for a recheck of your current condition. Forms Stand Alone Forms: Important Visit Information Prescriptions Prescriptions: No Action prednisone 20 mg tablet 20 mg PO .COMPLEX 3 Days Qty: 6 0RF Rx Instructions: 20 mg PO TAKE 3 TABLETS FOR DAY 1, THEN 2 TABLETS FOR DAY 2, THEN 1 TABLET FOR DAY 3 THEN STOP amlodipine 2.5 mg tablet 2.5 mg PO DAILY PRN (Reason: HTN) Qty: 90 1RF clonidine HCl 0.1 mg tablet 0.05 mg PO HS Qty: 270 1RF Rx Instructions: pt states can have 0.05mg-0.1mg up tid if prn but always take 1/2 tab hs Premarin 0.625 mg/gram cream 0.625 mg VAGINAL SUTH Qty: 30 3RF Rx Instructions: 2x weekly tramadol 50 mg tablet 50 mg PO BID PRN (Reason: Pain) Qty: 15 0RF Rx Instructions: 90 day supply Nurtec ODT 75 mg tablet,disintegrating 75 mg PO ONCE PRN (Reason: migraine headache) Qty: 8 5RF methocarbamol 750 mg tablet 750 mg PO TID PRN (Reason: muscle spasms) Qty: 270 3RF Rx Instructions: 90 day supply ondansetron 4 mg tablet,disintegrating 4 mg PO Q8H PRN (Reason: Nausea) Qty: 21 3RF Rx Instructions: 90 day supply cyanocobalamin (vitamin B-12) 1,000 mcg capsule 1,000 mcg PO DAILY dicyclomine 10 mg Capsule 10 mg PO QID PRN (Reason: Abdominal Pain) cholecalciferol (vitamin D3) 125 mcg (5,000 unit) Tablet 125 mcg PO Q2D Bepreve 1.5 % Drops 1 drp OPHTHALMIC (EYE) BID desonide 0.05 % Cream 1 applic TOPICAL BID PRN (Reason: ..) simethicone 180 mg Capsule 180 mg PO BID PRN (Reason: gas/bloating) hydrocortisone valerate 0.2 % Cream 1 applic TOPICAL HS PRN (Reason: ..) fluocinonide 0.05 % gel 1 applic TOPICAL BID PRN (Reason: irritation) calcium carbonate [Tums] 300 mg (750 mg) Tablet,Chewable 300 mg PO Q4 PRN (Reason: Acid Reflux) acetaminophen [Tylenol Extra Strength] 500 mg Tablet 500 mg PO QID PRN (Reason: Pain) triamcinolone acetonide 0.025 % Cream 1 applic TOPICAL BID PRN (Reason: breakouts) Rx Instructions: unsure of strength ascorbic acid (vitamin C) [Vitamin C] 500 mg Tablet 500 mg PO DAILY PRN (Reason: if gets sick) diphenhydramine HCl [Benadryl] 25 mg Capsule 25 mg PO HS PRN (Reason: Sleep) albuterol sulfate [Ventolin HFA] 90 mcg/actuation Hfa Aerosol Inhaler 1 - 2 puff INHALATION Q4 PRN (Reason: Shortness Of Breath Or Wheezing) guaifenesin [Mucinex] 600 mg Tablet Extended Release 12hr 600 mg PO Q12H Align (B.infantis) 4 mg capsule 4 mg PO DAILY fexofenadine 180 mg tablet 180 mg PO DAILY pantoprazole 40 mg tablet,delayed release (DR/EC) 40 mg PO DAILYBB PRN Referrals Referrals: Yohan Ferris MD [Primary Care Provider] - Discharge Problem: Migraine Qualifiers: Migraine type: unspecified Status migrainosus presence: without status migrainosus Intractability: not intractable Qualified Code(s): G43.909 - Migraine, unspecified, not intractable, without status migrainosus
[2024-10-08 22:57] LABS: Hematocrit (blood only) 44.9 % (37.0-47.0); Hemoglobin 14.8 g/dl (12.0-16.0); Immature Granulocytes # (auto) 0.01 K/uL (0.01-0.20); Immature Granulocytes % (auto) 0.2 %; Mean Corpuscular Hemoglobin 30.7 pg (25.0-34.0); Mean Corpuscular Volume 93.2 fL (80.0-100.0); Platelet Count 283 K/uL (130-400); RDW Standard Deviation 42.9 fL (36.4-46.3); Red Blood Count 4.82 M/uL (4.20-5.40); White Blood Count 5.77 K/ul (4.8-10.8)
[2024-10-08] MEDS: METOCLOPRAMIDE HCL INJ 5 MG/ML 2 ML VIAL IV STA (23:04)
[2024-10-08] MEDS: diphenhydrAMINE 50 MG/ML VIAL IV STA (23:04)
[2024-10-08] MEDS: SODIUM CHLORIDE 0.9% 1,000 ML IV ONE (23:04)
[2024-10-08] MEDS: OPTIRAY 320 125ml IV ONE (23:07)
[2024-10-08 23:14] LABS: Alanine Aminotransferase 10.0 U/L (7-52); Albumin Globulin Ratio 1.4 (0.9-2); Alkaline Phosphatase 57.0 U/L (34-104); Anion Gap 6.0 (3-11); Bilirubin,Total 0.6 mg/dl (0.2-1.0); Blood Urea Nitrogen 11.0 mg/dl (6-23); Calcium 9.2 mg/dl (8.6-10.3); Carbon Dioxide 30.0 mmol/L (21-32); Chloride 102.0 mmol/L (98-107); Creatinine Clr Calc Pharmacy 61.0 ml/min; Globulin 3.3 gm/dl (2.5-4.0); Glucose 100.0 mg/dl (70-99(Fasting)); Magnesium 1.9 mg/dl (1.7-2.4); Potassium 3.9 mmol/L (3.5-5.1); Sodium 138.0 mmol/L (136-145); Total Protein 7.8 gm/dl (6.0-8.3)
[2024-10-08 23:33] LABS: INR 0.9 (0.9-1.1); Partial Thromboplastin Time 25 Seconds (21-31); Prothrombin Time 10.1 Seconds (9.0-12.0)
--- NOTE | 2024-10-08 23:38 | CT Scan Report ---
Exam(s): CTA NECK With Contrast IV Amt: 118 ml optiray 320 EXAM: CT Angiography Neck With Intravenous Contrast CLINICAL HISTORY: Reason for exam: neuro deficit, acute stroke suspected. TECHNIQUE: Routine carotid CT angiography protocol was performed with intravenous contrast. NASCET criteria using the distal ICAs for comparison were used for evaluation of stenoses. CTDI is 10.82 mGy and DLP is 403.57 mGy-cm. Automated exposure control was utilized for the study. A dose lowering technique was utilized adhering to the principles of ALARA. MIP reconstructed images were created and reviewed. CONTRAST: Patient received 118 ml optiray 320 of IV contrast COMPARISON: None. FINDINGS: VASCULATURE: Right common carotid artery: Unremarkable. No occlusion or significant stenosis. No dissection. Right internal carotid artery: Unremarkable. Extracranial segment is patent with no occlusion or significant stenosis. No dissection. Right external carotid artery: Unremarkable. No occlusion. Right vertebral artery: Unremarkable. No occlusion or significant stenosis. No dissection. Left common carotid artery: Unremarkable. No occlusion or significant stenosis. No dissection. Left internal carotid artery: Unremarkable. Extracranial segment is patent with no occlusion or significant stenosis. No dissection. Left external carotid artery: Unremarkable. No occlusion. Left vertebral artery: Unremarkable. No occlusion or significant stenosis. No dissection. NECK: Bones/joints: There is a severe spinal canal stenosis at C6-7 fluid No acute fracture. Soft tissues: Prominent cervical lymph nodes. Lung apices: Clear. CAROTID STENOSIS REFERENCE USING NASCET CRITERIA: % ICA stenosis = (1 - narrowest ICA diameter/diameter of distal cervical ICA) x 100. Mild - <50% stenosis. Moderate - 50-69% stenosis. Severe - 70-94% stenosis. Near occlusion - 95-99% stenosis. Occluded - 100% stenosis. IMPRESSION: Negative CTA neck. Electronically signed by: Irene Parker MD 10/08/24 23:38 PM
--- NOTE | 2024-10-08 23:45 | CT Scan Report ---
Exam(s): CT HEAD Without Contrast EXAM: CT Head Without Intravenous Contrast CLINICAL HISTORY: Reason for exam: neuro deficit, acute stroke suspected. TECHNIQUE: Axial computed tomography images of the head/brain without intravenous contrast. CTDI is 37.51 mGy and DLP is 546.36 mGy-cm. Automated exposure control was utilized for the study. A dose lowering technique was utilized adhering to the principles of ALARA. COMPARISON: Prior brain MRI from February 05, 2018. FINDINGS: Brain: Unremarkable. No hemorrhage. No significant white matter disease. No edema. Ventricles: Unremarkable. No ventriculomegaly. Bones/joints: Unremarkable. No acute fracture. Soft tissues: Unremarkable. Sinuses: This post endoscopic sinus surgery. No acute sinusitis. Mastoid air cells: Unremarkable as visualized. No mastoid effusion. IMPRESSION: No evidence of acute intracranial pathology. Electronically signed by: Irene Parker MD 10/08/24 23:44 PM
--- NOTE | 2024-10-08 23:49 | CT Scan Report ---
Exam(s): CTA HEAD With Contrast IV Amt: 118 ml optiray 320 EXAM: CT Angiography Head With Intravenous Contrast CLINICAL HISTORY: Reason for exam: neuro deficit, acute stroke suspected. TECHNIQUE: Axial computed tomographic angiography images of the head with intravenous contrast. Automated exposure control was utilized for the study. A dose lowering technique was utilized adhering to the principles of ALARA. MIP reconstructed images were created and reviewed. CONTRAST: Patient received 118 ml optiray 320 of IV contrast COMPARISON: No relevant prior studies available. FINDINGS: The dural venous sinuses are patent. Right internal carotid artery: No acute findings. Intracranial segment is patent with no significant stenosis. No aneurysm. Right anterior cerebral artery: Unremarkable. No occlusion or significant stenosis. No aneurysm. Right middle cerebral artery: Unremarkable. No occlusion or significant stenosis. No aneurysm. Right posterior cerebral artery: Unremarkable. No occlusion or significant stenosis. No aneurysm. Right vertebral artery: Unremarkable as visualized. Left internal carotid artery: No acute findings. Intracranial segment is patent with no significant stenosis. No aneurysm. Left anterior cerebral artery: Unremarkable. No occlusion or significant stenosis. No aneurysm. Left middle cerebral artery: Unremarkable. No occlusion or significant stenosis. No aneurysm. Left posterior cerebral artery: Unremarkable. No occlusion or significant stenosis. No aneurysm. Left vertebral artery: Unremarkable as visualized. Basilar artery: Unremarkable. No occlusion or significant stenosis. No aneurysm. IMPRESSION: Negative CT angiogram of the head. Electronically signed by: Irene Parker MD 10/08/24 23:47 PM
[2024-10-08 23:51] LABS: Pregnancy Test, Serum Negative (Negative)
--- NOTE | 2024-10-09 02:11 | History & Physical Report ---
Date of Service October 09, 2024 Assessment & Plan (1) Stroke-like symptom: Plan: 54-year-old female with past medical history significant intermittent asthma, chronic sinusitis, hypertension, Patel's esophagus, constipation, diverticulosis of large intestine, history of diverticulitis, multiple drug allergies, endometriosis, mixed urge and stress incontinence, history of migraine with aura and without status migrainous and history of hemiplegic migraines in the past comes because of strokelike symptoms. Patient was working on a computer all all day. Around 9 PM she noticed a big area in the screen not visible to her.While she was talking to her she was having thoughts in her mind but words were not coming out. Then she developed nausea and headache behind the left eye and was feeling tingling sensation in her left hand. Patient and her thought her symptoms were different from her usual migraines and came to the ER. CT head, CTA head and neck with unremarkable. Currently patient nausea is improved. She still has some mild headache and still some spots she is not seeing properly properly. No runny nose or sore throat. No cough. No fevers. No difficulty swallowing. Denies any chest pain or shortness of breath. No abdominal pain. Patient states she has issues with constipation and diarrhea. Micturates okay. No rash. Hemodynamics are okay. Strokelike symptom Patient presented with visual disturbance, headache, nausea and some tingling sensation in his left arm. Symptoms mostly improved. CT head. CTA head and neck unremarkable MRI ordered will follow results Admitted telemetry Neurochecks per stroke protocol Swallow evaluation PT OT Neuroconsult in a.m. for further recommendations History of migraines History of hemiplegic migraines Currently on Nurtec as needed Follows with neurology Hypertension On clonidine Allergies On Sophia DVT prophylaxis SCDs Disposition Telemetry Full code. History of Present Illness Chief Complaint: Strokelike symptoms Primary Care Provider: Yohan Ferris MD 54-year-old female with past medical history significant intermittent asthma, chronic sinusitis, hypertension, Patel's esophagus, constipation, diverticulosis of large intestine, history of diverticulitis, multiple drug allergies, endometriosis, mixed urge and stress incontinence, history of migraine with aura and without status migrainous and history of hemiplegic migraines in the past comes because of strokelike symptoms. Patient was working on a computer all all day. Around 9 PM she noticed a big area in the screen not visible to her.While she was talking to her she was having thoughts in her mind but words were not coming out. Then she developed nausea and headache behind the left eye and was feeling tingling sensation in her left hand. Patient and her thought her symptoms were different from her usual migraines and came to the ER. CT head, CTA head and neck with unremarkable. Currently patient nausea is improved. She still has some mild headache and still some spots she is not seeing properly properly. No runny nose or sore throat. No cough. No fevers. No difficulty swallowing. Denies any chest pain or shortness of breath. No abdominal pain. Patient states she has issues with constipation and diarrhea. Micturates okay. No rash. Hemodynamics are okay. Past medical history. As mentioned above Past surgical history. Appendectomy. Biopsy of breast. Colonoscopy. Dental surgery. Dilatation and curettage. EGD. Laparoscopic hysterectomy. Laparoscopic inguinal hernia repair. Removal of nasal polyps. Removal of ovarian cyst. Sinus surgery. Sphenoid sinus surgery. Social history. . No smoking. No alcohol use. No drug use. Family history. Mother has asthma. Bleeding disorder. Hypertension. Thyroid disorder. Osteoporosis. Sister has asthma. Father has hypertension. Maternal grandmother had stroke at age 47. Allergies Allergy/AdvReac Type Severity Reaction Status Date / Time ciprofloxacin [From Cipro] Allergy Severe tendon Verified 03/09/24 14:27 swelling & muscle pain doxycycline Allergy Severe RASH/SEVERE Verified 03/09/24 14:27 DIARRHEA erythromycin base Allergy Severe HIVES/SOB Verified 03/09/24 14:27 adhesive Allergy Mild bandaids - Verified 03/09/24 14:27 rash, itchy silver nitrate Allergy Mild rash and Verified 03/09/24 14:27 itchy verapamil AdvReac Unknown constipatio Verified 03/09/24 14:27 n nickel AdvReac Itching, Verified 03/09/24 14:27 Rash Home Medications Medication Instructions Recorded Confirmed Type clonidine HCl 0.1 mg tablet 0.05 mg PO DAILY 10/09/24 10/09/24 History fexofenadine 180 mg tablet 180 mg PO DAILY 10/09/24 10/09/24 History rimegepant 75 mg disintegrating 75 mg PO DAILY PRN Headache 10/09/24 10/09/24 History tablet (Nurtec ODT) Past Med/Surg History Problem List (Updated 10/09/24 @ 02:20 by Isaac Schaefer MD) Stroke-like symptom Migraine (Acute) Agatston coronary artery calcium score less than 100 Iron deficiency Arterial atherosclerosis Allergic rhinitis due to dust mite Impacted cerumen of both ears Vulva neoplasm Cystocoele Allergic rhinitis Multiple drug allergies Recurrent infections Migraine with aura and without status migrainosus, not intractable Hx of anaphylaxis Bleeding disorder unspecified bleeding disorder does not take anticoagulation, blood thinners, NSAIDS Sciatica of left side Left hip pain Diplopia Vitamin D deficiency Thoracic spine pain Cervical radicular pain Cervical spine pain Arthritis (Acute) Asthma (Acute) Atrial ectopy (Acute) Breast lump (Acute) Cervical polyp (Acute) Chest pain (Acute) Chronic sinusitis (Acute) Disease of jaw (Acute) Dyspareunia (Acute) Fatigue (Acute) Female pelvic pain (Acute) History of constipation (Acute) Hypercholesterolemia (Acute) Lightheadedness (Acute) MRI of brain abnormal (Acute) Menopausal symptoms (Acute) Palpitations (Acute) Postmenopausal atrophic vaginitis (Acute) Premature menopause (Acute) Raynauds phenomenon (Acute) Shortness of breath on exertion (Acute) Stress incontinence in female (Acute) TMJ (temporomandibular joint syndrome) (Acute) Urinary tract infection (Acute) Vaginitis (Acute) Vasovagal syncope (Acute) Ventricular ectopy (Acute) Vitamin B12 deficiency (Acute) Sinus infection Migraine Bleeding tendency Endometriosis (Acute 02/02/13) GERD (gastroesophageal reflux disease) (Chronic) Patel's esophagus (Chronic) Borderline high cholesterol (Chronic) Medical History Stomach ulcer Seasonal allergies Asthma Surgical History History of tympanostomy History of colonoscopy History of esophagogastroduodenoscopy (EGD) S/P hysterectomy with oophorectomy S/P sinus surgery Status post fine needle aspiration History of laparoscopy History of hysterectomy History of appendectomy History of dilation and curettage History of sinus surgery History of hernia repair Family History Father Myocardial infarction Cardiac disorder Deafness AVD (aortic valve disease) Heart disease Family/Other AVD (aortic valve disease) Bleeding disorder Asthma Cardiac disorder Deafness Hypertension Allergies Grandfather Heart disease Grandmother Heart disease Other Cancer Stroke Denies family history of Ovarian cancer Prostate cancer Hearing loss No family history of adverse response to anesthesia Breast cancer Colorectal cancer Social History Smoking Status: Never smoker Do You Dip or Chew Tobacco: No; Hx Alcohol Use: No Hx Substance Use: No Preferred Language: Vietnamese Communication Ability: Effective Environmental Health Physician Required: No Beliefs That Will Affect Care: None marital status: Current Living Situation: Spouse current occupational status: retired Feels Safe at Home: Yes Safety Concerns: Feels Safe At This Time Assistive Devices: None Review of Systems Review of Systems: All systems reviewed & are unremarkable except as noted in HPI & below Physical Exam Physical Exam: General- Not in distress Head- atraumatic Eyes- PERRL, EOMI. ENT- oropharynx clear Neck- supple, no JVD. Lungs- clear to auscultation no wheezing or crackles Heart- regular rate and rhythm; no murmur, no gallop. Abdomen- normal bowel sounds, soft, nontender, no distension. Extremities- no pretibial edema, no erythema seen. Neuro- alert, oriented PERRL, EOMI; no facial palsy; no dysarthria; motor 5/5 bilaterally; no pronator drift, coordination of movements normal, sensations intact, position sense intact Results & Data Results & Data Vital Signs (Past 12 Hours) Vital Signs Temp Pulse Pulse Resp BP BP Pulse Ox 10/09/24 00:11 64 22 114/68 97 10/08/24 23:56 64 20 126/76 97 10/08/24 23:41 66 18 124/82 97 10/08/24 23:26 65 16 159/90 H 98 10/08/24 23:11 77 14 163/105 H 100 10/08/24 23:10 76 21 172/88 H 98 10/08/24 23:03 72 10/08/24 22:27 36.6 C 78 18 178/88 H 100 O2 Del Method 10/09/24 00:11 Room Air 10/08/24 23:56 Room Air 10/08/24 23:41 Room Air 10/08/24 23:26 Room Air 10/08/24 23:11 Room Air 10/08/24 23:10 Room Air 10/08/24 23:03 10/08/24 22:27 Room Air Diagnostic Findings Laboratory Results WBC 5.77 K/ul (4.8-10.8) 10/08/24 22:43 RBC 4.82 M/uL (4.20-5.40) 10/08/24 22:43 Hgb 14.8 g/dl (12.0-16.0) 10/08/24 22:43 POC Hgb 15.3 g/dl (12.0-16.0) 10/08/24 22:51 Hct 44.9 % (37.0-47.0) 10/08/24 22:43 POC Hct 45 % (37-47) 10/08/24 22:51 MCV 93.2 fL (80.0-100.0) 10/08/24 22:43 MCH 30.7 pg (25.0-34.0) 10/08/24 22:43 MCHC 33.0 g/dL (32.0-36.0) 10/08/24 22:43 RDW Std Deviation 42.9 fL (36.4-46.3) 10/08/24 22:43 RDW Coeff of Juliane 12.6 % (11.5-14.5) 10/08/24 22:43 Plt Count 283 K/uL (130-400) 10/08/24 22:43 MPV 11.3 fL (9.4-12.4) 10/08/24 22:43 Immature Gran % (Auto) 0.2 % 10/08/24 22:43 Neut % (Auto) 47.1 % 10/08/24 22:43 Lymph % (Auto) 36.0 % 10/08/24 22:43 Shelby % (Auto) 10.1 % 10/08/24 22:43 Eos % (Auto) 5.7 % 10/08/24 22:43 Baso % (Auto) 0.9 % 10/08/24 22:43 Neut # (Auto) 2.72 K/uL (1.40-6.50) 10/08/24 22:43 Lymph # (Auto) 2.08 K/uL (1.20-3.40) 10/08/24 22:43 Shelby # (Auto) 0.58 K/uL (0.11-0.59) 10/08/24 22:43 Eos # (Auto) 0.33 K/uL (0.00-0.50) 10/08/24 22:43 Baso # (Auto) 0.05 K/uL (0.00-0.20) 10/08/24 22:43 Immature Gran # (Auto) 0.01 K/uL (0.01-0.20) 10/08/24 22:43 PT 10.1 Seconds (9.0-12.0) 10/08/24 22:43 INR 0.9 (0.9-1.1) 10/08/24 22:43 APTT 25 Seconds (21-31) 10/08/24 22:43 PTT Ratio 0.9 10/08/24 22:43 POC Sodium 140 mmol/L (135-144) 10/08/24 22:51 Sodium 138 mmol/L (136-145) 10/08/24 22:43 POC Potassium 3.9 mmol/L (3.3-5.0) 10/08/24 22:51 Potassium 3.9 mmol/L (3.5-5.1) 10/08/24 22:43 POC Chloride 101 mmol/L (101-112) 10/08/24 22:51 Chloride 102 mmol/L (98-107) 10/08/24 22:43 Carbon Dioxide 30 mmol/L (21-32) 10/08/24 22:43 POC Total CO2 28 mmol/L (24-31) 10/08/24 22:51 Anion Gap 6 (3-11) 10/08/24 22:43 POC Anion Gap 16.0 mmol/L (16-25) 10/08/24 22:51 POC BUN 10 mg/dl (7-18) 10/08/24 22:51 BUN 11 mg/dl (6-23) 10/08/24 22:43 Creatinine 0.97 mg/dl (0.6-1.2) 10/08/24 22:43 POC Creatinine 1.1 mg/dl (0.6-1.3) 10/08/24 22:51 Est Cr Clr Drug Dosing 61.0 ml/min 10/08/24 22:43 eGFR 70.31 07/24/25 22:43 BUN/Creatinine Ratio 11.3 (10-20) 10/08/24 22:43 Glucose 100 mg/dl (70-99(Fasting)) H 10/08/24 22:43 POC Glucose (other) 96 mg/dl (70-99) 10/08/24 22:51 Calcium 9.2 mg/dl (8.6-10.3) 10/08/24 22:43 POC Ioniz Calcium Dennise 1.13 mmol/l (1.12-1.32) 10/08/24 22:51 Magnesium 1.9 mg/dl (1.7-2.4) 10/08/24 22:43 Total Bilirubin 0.6 mg/dl (0.2-1.0) 10/08/24 22:43 AST 18 U/L (13-39) 10/08/24 22:43 ALT 10 U/L (7-52) 10/08/24 22:43 Alkaline Phosphatase 57 U/L (34-104) 10/08/24 22:43 Troponin I High Sens 3.3 pg/ml (0-14) 10/08/24 22:43 Total Protein 7.8 gm/dl (6.0-8.3) 10/08/24 22:43 Albumin 4.5 gm/dl (3.4-5.0) 10/08/24 22:43 Globulin 3.3 gm/dl (2.5-4.0) 10/08/24 22:43 Albumin/Globulin Ratio 1.4 (0.9-2) 10/08/24 22:43 HCG, Qual Negative (Negative) 10/08/24 22:[address] 10/08/24 22:41 Exam(s): CT HEAD Without Contrast EXAM: CT Head Without Intravenous Contrast CLINICAL HISTORY: Reason for exam: neuro deficit, acute stroke suspected. TECHNIQUE: Axial computed tomography images of the head/brain without intravenous contrast. CTDI is 37.51 mGy and DLP is 546.36 mGy-cm. Automated exposure control was utilized for the study. A dose lowering technique was utilized adhering to the principles of ALARA. COMPARISON: Prior brain MRI from February 05, 2018. FINDINGS: Brain: Unremarkable. No hemorrhage. No significant white matter disease. No edema. Ventricles: Unremarkable. No ventriculomegaly. Bones/joints: Unremarkable. No acute fracture. Soft tissues: Unremarkable. Sinuses: This post endoscopic sinus surgery. No acute sinusitis. Mastoid air cells: Unremarkable as visualized. No mastoid effusion. IMPRESSION: No evidence of acute intracranial pathology. Electronically signed by: Irene Parker MD 10/08/24 23:44 PM Head CTA 10/08/24 22:41 Exam(s): CTA HEAD With Contrast IV Amt: 118 ml optiray 320 EXAM: CT Angiography Head With Intravenous Contrast CLINICAL HISTORY: Reason for exam: neuro deficit, acute stroke suspected. TECHNIQUE: Axial computed tomographic angiography images of the head with intravenous contrast. Automated exposure control was utilized for the study. A dose lowering technique was utilized adhering to the principles of ALARA. MIP reconstructed images were created and reviewed. CONTRAST: Patient received 118 ml optiray 320 of IV contrast COMPARISON: No relevant prior studies available. FINDINGS: The dural venous sinuses are patent. Right internal carotid artery: No acute findings. Intracranial segment is patent with no significant stenosis. No aneurysm. Right anterior cerebral artery: Unremarkable. No occlusion or significant stenosis. No aneurysm. Right middle cerebral artery: Unremarkable. No occlusion or significant stenosis. No aneurysm. Right posterior cerebral artery: Unremarkable. No occlusion or significant stenosis. No aneurysm. Right vertebral artery: Unremarkable as visualized. Left internal carotid artery: No acute findings. Intracranial segment is patent with no significant stenosis. No aneurysm. Left anterior cerebral artery: Unremarkable. No occlusion or significant stenosis. No aneurysm. Left middle cerebral artery: Unremarkable. No occlusion or significant stenosis. No aneurysm. Left posterior cerebral artery: Unremarkable. No occlusion or significant stenosis. No aneurysm. Left vertebral artery: Unremarkable as visualized. Basilar artery: Unremarkable. No occlusion or significant stenosis. No aneurysm. IMPRESSION: Negative CT angiogram of the head. Electronically signed by: Irene Parker MD 10/08/24 23:47 PM Neck CTA 10/08/24 22:41 Exam(s): CTA NECK With Contrast IV Amt: 118 ml optiray 320 EXAM: CT Angiography Neck With Intravenous Contrast CLINICAL HISTORY: Reason for exam: neuro deficit, acute stroke suspected. TECHNIQUE: Routine carotid CT angiography protocol was performed with intravenous contrast. NASCET criteria using the distal ICAs for comparison were used for evaluation of stenoses. CTDI is 10.82 mGy and DLP is 403.57 mGy-cm. Automated exposure control was utilized for the study. A dose lowering technique was utilized adhering to the principles of ALARA. MIP reconstructed images were created and reviewed. CONTRAST: Patient received 118 ml optiray 320 of IV contrast COMPARISON: None. FINDINGS: VASCULATURE: Right common carotid artery: Unremarkable. No occlusion or significant stenosis. No dissection. Right internal carotid artery: Unremarkable. Extracranial segment is patent with no occlusion or significant stenosis. No dissection. Right external carotid artery: Unremarkable. No occlusion. Right vertebral artery: Unremarkable. No occlusion or significant stenosis. No dissection. Left common carotid artery: Unremarkable. No occlusion or significant stenosis. No dissection. Left internal carotid artery: Unremarkable. Extracranial segment is patent with no occlusion or significant stenosis. No dissection. Left external carotid artery: Unremarkable. No occlusion. Left vertebral artery: Unremarkable. No occlusion or significant stenosis. No dissection. NECK: Bones/joints: There is a severe spinal canal stenosis at C6-7 fluid No acute fracture. Soft tissues: Prominent cervical lymph nodes. Lung apices: Clear. CAROTID STENOSIS REFERENCE USING NASCET CRITERIA: % ICA stenosis = (1 - narrowest ICA diameter/diameter of distal cervical ICA) x 100. Mild - <50% stenosis. Moderate - 50-69% stenosis. Severe - 70-94% stenosis. Near occlusion - 95-99% stenosis. Occluded - 100% stenosis. IMPRESSION: Negative CTA neck. Electronically signed by: Irene Parker MD 10/08/24 23:38 PM ECG Additional Comments: ECG. Sinus bradycardia rate 57. No significant change was found. Code Status & VTE Plan VTE Prophylaxis Plan VTE Prophylaxis will be ordered: Yes
--- NOTE | 2024-10-09 03:15 | Magnetic Resonance Report ---
EXAM: MR brain wo con CLINICAL HISTORY: cva sx TECHNIQUE: Multisequential and multiplanar images of the brain were submitted for review without contrast. COMPARISON: MR , 02/05/2018 14:24:11 FUR DRUMMER FINDINGS: The brain shows normal morphology, signal intensity, and volume for age. No focal parenchymal lesions are seen. No intracranial hemorrhage, mass effect, midline shift, extra-axial collection, or hydrocephalus is identified. Ventricles, sulci, and basal cisterns are symmetric and normal in size and configuration. Diffusion-weighted sequences show no evidence of acute ischemic infarction. Midline structures including the pituitary gland, corpus callosum, pineal region, and brainstem are unremarkable. The craniovertebral junction is within normal limits. No calvarial abnormalities are identified. The paranasal sinuses and mastoid air cells are clear. Orbital structures are unremarkable. Appropriate flow voids are present in the visualized intracranial vessels. IMPRESSION: 1. No acute ischemia, space occupying mass, or other acute intracranial pathology is demonstrated. 2. No interval changes. Electronically signed by Kilo Nguyen 10-09-2024 03:13 AM
[2024-10-09] MEDS ORDERED: ACETAMINOPHEN 325 MG TAB PO PRN (03:26)
[2024-10-09] MEDS ORDERED: NITROGLYCERIN SL 0.4 MG/TAB TAB SL PRN (03:26)
[2024-10-09] MEDS ORDERED: PHARMACIST DISCHARGE MED REC CONSULT PRN (03:26)
[2024-10-09] MEDS: SODIUM CHLORIDE 0.9% 1,000 ML IV SCH (04:04)
[2024-10-09 05:52] LABS: Hematocrit (blood only) 40.2 % (37.0-47.0); Hemoglobin 13.2 g/dl (12.0-16.0); Immature Granulocytes # (auto) 0.01 K/uL (0.01-0.20); Immature Granulocytes % (auto) 0.2 %; Mean Corpuscular Hemoglobin 30.3 pg (25.0-34.0); Mean Corpuscular Volume 92.2 fL (80.0-100.0); Platelet Count 236 K/uL (130-400); RDW Standard Deviation 41.9 fL (36.4-46.3); Red Blood Count 4.36 M/uL (4.20-5.40); White Blood Count 5.53 K/ul (4.8-10.8)
[2024-10-09 06:08] LABS: Anion Gap 4.0 (3-11); Blood Urea Nitrogen 8.0 mg/dl (6-23); Calcium 8.3 mg/dl (8.6-10.3); Carbon Dioxide 28.0 mmol/L (21-32); Chloride 108.0 mmol/L (98-107); Cholesterol 188.0 mg/dl (0-200); Creatinine Clr Calc Pharmacy 76.9 ml/min; Glucose 92.0 mg/dl (70-99(Fasting)); HDL Cholesterol 69.0 mg/dl; Potassium 4.7 mmol/L (3.5-5.1); Sodium 140.0 mmol/L (136-145); Triglycerides 52.0 mg/dl (0-150)
[2024-10-09 07:07] LABS: Hemoglobin A1C 5.4 % (4.5-5.6)
[2024-10-09 08:23] VITALS: RESP 18
[2024-10-09] MEDS: FEXOFENADINE HCL 180 MG TAB PO SCH (08:45)
--- NOTE | 2024-10-09 10:18 | Neurology Consultation ---
Date of Consultation October 09, 2024 Assessment & Plan (1) Migraine: Plan This patient has a longstanding history of intermittent significant migraine headaches which are currently few and far between. She does have a history of complicated migraine in the past. She was admitted with a complicated migraine with aura (vasospasm) and headache (vasodilation) occurring at the same time. This migraine has resolved this morning and she has some posterior elbow left over affect but is back to baseline neurologically. She has no focal findings, meningeal signs, or encephalopathy. Her speech is normal. Her vision is normal. Etiology of this was likely stress although frequently no specific etiology can be identified. MRI of the brain was unremarkable and there was no evidence of stroke or TIA. CT angiography is unremarkable without vascular stenoses. Echocardiogram is pending. Recommendations: 1. Since these migraines are so few and far between she is not a candidate for regular medication to prevent migraines. Normally, with a complicated migraine, verapamil is a drug of choice but she has had significant side effects of this medication in the past. 2. Use Nurtec 75 mg as needed for migraine. She will try and use this next time. 3. Increase activity as able otherwise I have no further neurologic testing or treatment recommendations to make at this time. 4. Follow-up with neurology as an outpatient (neurology PA in 2 to 3 weeks) Overall, I spent a total of 75 minutes with this case including review of records, review of MRI films, direct evaluation the patient at bedside, report generation, and discussion of the case with the patient at bedside as well as Dr. Moore including differential diagnosis and treatment options. History of Present Illness Reason for Consultation: Patient is a 54-year-old, who I was asked to see at the request of Dr. Schaefer, for neurologic evaluation regarding complicated migraine Requesting Physician: Dr. Schaefer Attending Physician: Rudy Moore MD History of Present Illness This patient is known to me as I been following her for approximately 20 years as an outpatient for migraine headaches. She was last seen in neurology clinic in February 2024. Over the years she has had migraines and complicated migraines (including "hemiplegic" migraines). Fortunately she is doing fairly well and her last significant headache was at least 2 years ago. She did have a minor migrainous type headache about 3 months ago but this was resolved with [id number] medication and rest. In the past she has tried and failed propranolol, valproic acid, and verapamil to prevent headaches. The verapamil gave her significant constipation. In addition she has tried and failed sumatriptan, rizatriptan, and Ubrelvy. She gets some help with generic Fioricet. She has Nurtec to take but has not taken that yet so she does not know how this might work. Because of her severe constipation history she is not a candidate for Aimovig or tricyclic antidepressants. The patient was in her usual state of health although she has been having considerable amount of stress recently because of illness of her mother. Around 2100 on October 08, she had the sudden onset of central vision blurriness in both eyes (with peripheral vision sparing). Within 20 minutes she had the onset of a left occipital followed by left side and left face pain of a tight stabbing nature. She noted nausea (no vomiting), photophobia, and phonophobia. The left side of her face was tingly. She noted significant word finding difficulties and had trouble texting. The vision symptoms lasted about 20 minutes. The word finding difficulty lasted about an hour. The headache lasted several hours. Patient arrived at the emergency room on October 08 at 2227 with a temperature of 36.6, pulse 78 regular, respirate 18, blood pressure 178/88, and O2 saturation 100%. Neurologic examination was unremarkable with no obvious weakness or speech problems. CBC and CHEM profile were unremarkable. CT scan of the head was unremarkable. CT angiography of the head and neck were unremarkable without vascular stenoses or anomalies. MRI of the brain was obtained without contrast and showed no acute changes with no other significant chronic findings. I reviewed these films. Patient was given IV fluids as well as metoclopramide and diphenhydramine. This resolved her nausea and made her feel better. Symptoms resolved in the ER although the headache lingered for a while. This morning the patient feels close to baseline. She still has some residual headache sensations of a very minor nature without nausea, vomiting, photophobia or phonophobia. She has no word finding difficulties or vision issues. She denies pain or weakness in the extremities and has no spine pain, speech or mentation issues. Repeat CBC and CHEM profile were unremarkable. B12 was 245, triglycerides 52 and total cholesterol 188. Echocardiogram is pending Allergies Allergy/AdvReac Type Severity Reaction Status Date / Time ciprofloxacin [From Cipro] Allergy Severe tendon Verified 03/09/24 14:27 swelling & muscle pain doxycycline Allergy Severe RASH/SEVERE Verified 03/09/24 14:27 DIARRHEA erythromycin base Allergy Severe HIVES/SOB Verified 03/09/24 14:27 adhesive Allergy Mild bandaids - Verified 03/09/24 14:27 rash, itchy silver nitrate Allergy Mild rash and Verified 03/09/24 14:27 itchy verapamil AdvReac Unknown constipatio Verified 03/09/24 14:27 n nickel AdvReac Itching, Verified 03/09/24 14:27 Rash Home Medications Medication Instructions Recorded Confirmed Type clonidine HCl 0.1 mg tablet 0.05 mg PO DAILY 10/09/24 10/09/24 History fexofenadine 180 mg tablet 180 mg PO DAILY 10/09/24 10/09/24 History rimegepant 75 mg disintegrating 75 mg PO DAILY PRN Headache 10/09/24 10/09/24 History tablet (Nurtec ODT) Patient History Medical History Stomach ulcer Seasonal allergies Asthma Surgical History History of tympanostomy History of colonoscopy History of esophagogastroduodenoscopy (EGD) S/P hysterectomy with oophorectomy S/P sinus surgery x6 Status post fine needle aspiration History of laparoscopy History of hysterectomy History of appendectomy History of dilation and curettage History of sinus surgery History of hernia repair Family History Father Myocardial infarction Cardiac disorder Deafness AVD (aortic valve disease) Heart disease Family/Other AVD (aortic valve disease) Bleeding disorder Asthma Cardiac disorder Deafness Hypertension Allergies Grandfather Heart disease Grandmother Heart disease Other Cancer Stroke Denies family history of Ovarian cancer Prostate cancer Hearing loss No family history of adverse response to anesthesia Breast cancer Colorectal cancer Social History Smoking Status: Never smoker Do You Dip or Chew Tobacco: No; Hx Alcohol Use: No Hx Substance Use: No Preferred Language: Georgian Communication Ability: Effective Fruit Pitter Required: No Beliefs That Will Affect Care: None marital status: Current Living Situation: Spouse current occupational status: retired Feels Safe at Home: Yes Safety Concerns: Feels Safe At This Time Assistive Devices: None Review of Systems Constitutional: no fever, no fatigue and no weakness Eyes: no diplopia, no eye pain and no worsening vision Ear, Nose, Mouth, Throat: no ear pain, no tinnitus, no hearing loss, no dizziness, no snoring, no hoarseness and no dysphagia Respiratory: no cough and no dyspnea Cardiovascular: no chest pain, no palpitations and no lightheadedness Gastrointestinal: no abdominal pain, no nausea and no vomiting Genitourinary: no dysuria, no urinary frequency and no urinary incontinence Musculoskeletal: no back pain, no neck pain, no radicular pain, no joint pain and no myalgia Integumentary: no rash and no lesions Neurologic: no gait abnormality, no localized weakness, no generalized weakness, no tingling, no numbness, no tremor(s), no abnormal movements, no headache(s), no abnormal speech, no confusion and no memory loss Psychiatric: no depression, no irritability, no anxiety, no difficulty concentrating, no confusion and no hallucinations Endocrine: no fatigue and no flushing Hematologic / Lymphatic: no easy bleeding and no easy bruising Allergy / Immunological: no urticaria and no problem reported Exam (Neuro) Physical Exam: The patient is right-handed. The patient is awake, alert, and attentive. Speech is normal without any aphasia or dysarthria. Mentation and thought processes are intact, with full arcadio entation and normal fund of knowledge. Mood and affect are normal and appropriate. Appearance and grooming are normal. Short and long-term memory are intact. Pupils are 4 mm bilaterally and reactive to light. Extraocular eye muscles are intact without nystagmus. Visual acuity and visual wilson seem normal grossly to confrontation. There are no deficits to sensation in the face in all 3 distributions of the fifth cranial nerve bilaterally. Corneal reflexes are positive bilaterally. Facial strength and symmetry was normal bilaterally. Hearing seems intact grossly to voice and finger rub bilaterally. Palate moves well without asymmetry. There is normal sternocleidomastoid and trapezius strength bilaterally. Tongue is midline with good strength bilaterally. Neck has a full range of motion without discomfort. There are no cervical bruits bilaterally. There are no cranial or ocular bruits. Heart is without murmur. There is a regular rhythm and rate. Cervical, thoracic, and lumbar spine are nontender to palpation. Gait is narrow based, with good arm swing, turns, and stance. Balance is normal eyes open. With outstretched arms there is no drift. There are no resting, postural, or a ction tremors. There is no ataxia with finger to nose testing. There is good facility in the hands. No other abnormal involuntary movements are noted. Motor strength is 5/5 diffusely in the arms bilaterally including deltoids, biceps, triceps, brachioradialis, wrist flexors and extensors, burglar alarm installer, and intrinsic hand muscles. Motor strength is 5/5 diffusely in the legs bilaterally including hip flexors, quadriceps, hamstrings, gastrocnemius, tibialis anterior, tibialis posterior, and Peroneii muscles bilaterally. Toe extensors are normal and there is good bulk in the extensor digitorum brevis muscles bilaterally. The limbs have good tone without rigidity or spasticity. There is no atrophy noted in the muscles. Muscle bulk is normal, there is no tenderness to palpation, no myotonia to percussion, and no fasciculations seen. Sensory examination is intact to touch and pin throughout all 4 limbs diffusely. Reflexes are 2/4 in the biceps, triceps, brachioradialis, quadriceps, and Achilles tendons bilaterally. Toes are downgoing with plantar stimulation bilaterally. Peripheral pulses are present and of normal quality distally in all 4 limbs. There is no peripheral edema noted in the limbs. Results & Data Vital Signs (Past 12 Hours) Vital Signs Temp Pulse Pulse Resp BP BP Pulse Ox 10/09/24 04:09 62 10/09/24 03:27 36.4 C L 55 L 16 142/85 H 100 10/09/24 03:04 57 L 19 126/75 98 10/09/24 02:26 52 L 18 156/85 H 99 10/09/24 00:11 64 22 114/68 97 10/08/24 23:56 64 20 126/76 97 10/08/24 23:41 66 18 124/82 97 10/08/24 23:26 65 16 159/90 H 98 10/08/24 23:11 77 14 163/105 H 100 10/08/24 23:10 76 21 172/88 H 98 10/08/24 23:03 72 10/08/24 22:27 36.6 C 78 18 178/88 H 100 O2 Del Method 10/09/24 04:09 10/09/24 03:27 Room Air 10/09/24 03:04 Room Air 10/09/24 02:26 Room Air 10/09/24 00:11 Room Air 10/08/24 23:56 Room Air 10/08/24 23:41 Room Air 10/08/24 23:26 Room Air 10/08/24 23:11 Room Air 10/08/24 23:10 Room Air 10/08/24 23:03 10/08/24 22:27 Room Air PG Care Time/CCT Total # of Minutes Spent Total Time Spent with Patient: Total time spent is greater than 50% in coordination of care (as documented) at patient's floor/unit and/or counseling patient: Coding Level of Care Code 33495 INT INP/OBS CARE MIN Diagnoses Migraine G43.909 Intractability: not intractable Migraine type: unspecified Status migrainosus presence: without status migrainosus Time Spent (min) 75 (1) Migraine Intractability: not intractable Migraine type: unspecified Status migrainosus presence: without status migrainosus Qualified Code(s): G43.909 - Migraine, unspecified, not intractable, without status migrainosus
[2024-10-09 11:23] VITALS: BP 115/74; TEMP 98.1; O2SAT 97
--- NOTE | 2024-10-09 13:31 | Discharge Summary ---
Date of Service October 09, 2024 Admission HPI Per Admitting Provider 54-year-old female with past medical history significant intermittent asthma, chronic sinusitis, hypertension, Patel's esophagus, constipation, diverticulosis of large intestine, history of diverticulitis, multiple drug allergies, endometriosis, mixed urge and stress incontinence, history of migraine with aura and without status migrainous and history of hemiplegic migraines in the past comes because of strokelike symptoms. Patient was working on a computer all all day. Around 9 PM she noticed a big area in the screen not visible to her.While she was talking to her she was having thoughts in her mind but words were not coming out. Then she developed nausea and headache behind the left eye and was feeling tingling sensation in her left hand. Patient and her thought her symptoms were different from her usual migraines and came to the ER. CT head, CTA head and neck with unremarkable. Currently patient nausea is improved. She still has some mild headache and still some spots she is not seeing properly properly. No runny nose or sore throat. No cough. No fevers. No difficulty swallowing. Denies any chest pain or shortness of breath. No abdominal pain. Patient states she has issues with constipation and diarrhea. Micturates okay. No rash. Hemodynamics are okay. Past medical history. As mentioned above Past surgical history. Appendectomy. Biopsy of breast. Colonoscopy. Dental surgery. Dilatation and curettage. EGD. Laparoscopic hysterectomy. Laparoscopic inguinal hernia repair. Removal of nasal polyps. Removal of ovarian cyst. Sinus surgery. Sphenoid sinus surgery. Social history. . No smoking. No alcohol use. No drug use. Family history. Mother has asthma. Bleeding disorder. Hypertension. Thyroid disorder. Osteoporosis. Sister has asthma. Father has hypertension. Maternal grandmother had stroke at age 47. Admission Exam Per Admitting Provider General- Not in distress Head- atraumatic Eyes- PERRL, EOMI. ENT- oropharynx clear Neck- supple, no JVD. Lungs- clear to auscultation no wheezing or crackles Heart- regular rate and rhythm; no murmur, no gallop. Abdomen- normal bowel sounds, soft, nontender, no distension. Extremities- no pretibial edema, no erythema seen. Neuro- alert, oriented PERRL, EOMI; no facial palsy; no dysarthria; motor 5/5 bilaterally; no pronator drift, coordination of movements normal, sensations intact, position sense intact Principal Diagnosis Migraine attack ruled out Stroke Discharge Exam General- Not in distress Head- atraumatic Eyes- PERRL, EOMI. ENT- oropharynx clear Neck- supple, no JVD. Lungs- clear to auscultation no wheezing or crackles Heart- regular rate and rhythm; no murmur, no gallop. Abdomen- normal bowel sounds, soft, nontender, no distension. Extremities- no pretibial edema, no erythema seen. Neuro- alert, oriented PERRL, EOMI; no facial palsy; no dysarthria; motor 5/5 bilaterally; no pronator drift, coordination of movements normal, sensations intact, position sense intact Discharge Data Allergies Allergy/AdvReac Type Severity Reaction Status Date / Time ciprofloxacin [From Cipro] Allergy Severe tendon Verified 03/09/24 14:27 swelling & muscle pain doxycycline Allergy Severe RASH/SEVERE Verified 03/09/24 14:27 DIARRHEA erythromycin base Allergy Severe HIVES/SOB Verified 03/09/24 14:27 adhesive Allergy Mild bandaids - Verified 03/09/24 14:27 rash, itchy silver nitrate Allergy Mild rash and Verified 03/09/24 14:27 itchy verapamil AdvReac Unknown constipatio Verified 03/09/24 14:27 n nickel AdvReac Itching, Verified 03/09/24 14:27 Rash Consultations 10/09/24 00:43 ED Decision to Admit Stat 10/09/24 08:00 Consult Neurology Routine Ordered Studies 10/08/24 22:41 CT angio head w con Stat CT angio neck with con Stat CT head/brain wo con Stat 10/09/24 00:43 MRI Brain [MR brain wo con] Stat Hospital Course (1) Stroke-like symptom: 54-year-old female with past medical history significant intermittent asthma, chronic sinusitis, hypertension, Patel's esophagus, constipation, diverticulosis of large intestine, history of diverticulitis, multiple drug allergies, endometriosis, mixed urge and stress incontinence, history of migraine with aura and without status migrainous and history of hemiplegic migraines in the past comes because of strokelike symptoms. Patient was working on a computer all all day. Around 9 PM she noticed a big area in the screen not visible to her.While she was talking to her she was having thoughts in her mind but words were not coming out. Then she developed nausea and headache behind the left eye and was feeling tingling sensation in her left hand. Patient and her thought her symptoms were different from her usual migraines and came to the ER. CT head, CTA head and neck with unremarkable. Currently patient nausea is improved. She still has some mild headache and still some spots she is not seeing properly properly. No runny nose or sore throat. No cough. No fevers. No difficulty swallowing. Denies any chest pain or shortness of breath. No abdominal pain. Patient states she has issues with constipation and diarrhea. Micturates okay. No rash. Hemodynamics are okay. Strokelike symptom Patient presented with visual disturbance, headache, nausea and some tingling sensation in his left arm. Symptoms significantly improved per pt. CT head. CTA head and neck and MRI brain unremarkable Neuro evaled, likely migraine attack, pt to use prn Nurtec and f/u w/ neuro in 2-3 weeks. History of migraines History of hemiplegic migraines Currently on Nurtec as needed Follows with neurology Hypertension On clonidine Allergies On Sophia DVT prophylaxis SCDs Disposition Telemetry Full code. Patient is being discharged home with following instructions at the point of discharge: Follow-up with your primary care physician within a week time and likely you will need labs CBC/CMP/magnesium/phosphorus. You were evaluated for migraine attack, stroke was ruled out, neurology evaluated you. Follow-up with neurology in 2 to 3 weeks time. Take your medications as prescribed. Please make sure that you are able to get your medications today by calling your pharmacy before you leave the hospital so that your treatment continuity is not broken. Home Health Attestation I certify that this patient is under my care and that I, or a physicians faculty i on call medical assistant working with me, had a face to-face encounter that meets the home health [id number] encounter requirements with this patient. The encounter with the patient was in whole, or in part, for the following medical condition, which is the primary reason for home health care (list medical condition): I certify that, based on my findings, the following services are medically necessary home health services: My clinical findings support the need for the above services because: Further, I certify that my clinical findings support that this patient is homebound (i.e. absences from home require considerable and taxing effort and are for medical reasons or confucianism services or infrequently or of short duration when for other reasons) because: Certification for Home Health Services: Based on the above findings, I certify that this patient is confined to the home and needs intermittent fpc care, physical therapy and/or speech therapy or continues to need occupational therapy. The patient is under my care, and I have initiated the establishment of the plan of care. This patient will be followed by a physician who will periodically review the plan of care. Total Time Total Time Spent Total Time Spent (In Minutes): 35 Discharge Plan Discharge Items Patient Disposition: Home - Self-Care Reason For Visit: STROKE LIKE SYMPTOMS Discharge Diagnosis: Migraine attack ruled out Stroke Condition on Discharge: Good Activity: Resume your previous activity Non-emergency contact: Primary Care Provider Call non-emergency contact if: you have any medication questions and your symptoms worsen Follow-up/Referrals: Yohan Ferris MD [Primary Care Provider] - Diet: Heart Healthy Addtl Attending Provider Instructions: Follow-up with your primary care physician within a week time and likely you will need labs CBC/CMP/magnesium/phosphorus. You were evaluated for migraine attack, stroke was ruled out, neurology evaluated you. Follow-up with neurology in 2 to 3 weeks time. Take your medications as prescribed. Please make sure that you are able to get your medications today by calling your pharmacy before you leave the hospital so that your treatment continuity is not broken. Pending Studies at Discharge: No Stand-Alone Forms: My [facility] [employer], Smoking Cessation Medications and DC Order Prescriptions: Continued clonidine HCl 0.1 mg tablet 0.05 mg PO DAILY fexofenadine [Sophia] 180 mg Tablet 180 mg PO DAILY Nurtec ODT 75 mg tablet,disintegrating 75 mg PO DAILY PRN (Reason: Headache) Discharge Orders: Discharge Order (Routine); Ordered 10/09/24 Ordered By: Rudy Moore Admission Data Admit Date/Time: 10/09/24 02:03 Attending Provider: Rudy Moore Admit Provider: Isaac Schaefer Primary Care Provider: Yohan Ferris Other Providers: Rachid Leone; Bayron Williamson; Radha Velasco; Elizabeth Chandler; Adria Zeng; Julia Lam; Isaac Schaefer
[2024-10-09 13:46] VITALS: PULSE 62
--- NOTE | 2024-10-09 22:25 | Electrocardiogram Report ---
Test Reason : Blood Pressure : */* mmHG Vent. Rate : 57 BPM Atrial Rate : 57 BPM P-R Int : 148 ms QRS Dur : 96 ms QT Int : 418 ms P-R-T Axes : 60 74 49 degrees QTcB Int : 406 ms Sinus bradycardia Otherwise normal ECG When compared with ECG of 07-Mar-2018 22:16, No significant change was found Confirmed by Markel Riley ([id number]) on 10/09/2024 10:25:26 PM Referred By: REFERRED SELF Confirmed By: Markel Riley
== END 2024-10-09 14:47 | disposition home or self-care (01) ==
LOC: 4W 22:26 → ED 22:26 → 4W 10-09 03:04